=== PATIENT | female | born 1980 | race Caucasian/White ===

== ENCOUNTER 2022-01-25 20:48 | Inpatient (IN) | payer OTHER, SELFPAY ==
[2022-01-25 21:50] VITALS: BP 116/59; PULSE 95; RESP 16; TEMP 36.2; O2SAT 97; BMI 27.3
--- NOTE | 2022-01-25 23:40 | PC.ADMIT ---
Pt is a 41y/o female admitted on [facility] from [facility] for inpatient level of care due to disorganized presentation and having difficulty answering questions. Pt is alert and oriented X3, VSS. Covid negative, Tox screen positive for Marijuana; history of cocain and ETOH use. Pt presents as disheveled, irritable and disorganized thought process. Pt is high risk of unintentional harm to self and also being taken advantage of in the community due to poor decision making and poor judgment. Pt has poor ADLs. Pt denies SI/HI/ or AH/VH. Endorsed low depression. Pt states that she is tired and ready to sleep. Speech is pressured with normal rate and rhythm. Pt has difficulty answering questions and also completing admission assessment. Pt agrees that staff notifies her sister in the event of a restraint. admission orders obtained, safety tool and treatment plan completed.
[2022-01-26 07:40] LABS: Cholesterol 232 mg/dL; HDL Cholesterol 46 mg/dL; LDL Cholesterol Calculated 143 mg/dl; Triglycerides 217 mg/dL
[2022-01-26 07:47] LABS: Estimated Average Glucose 108 mg/dL; Hemoglobin A1c % 5.4 %
[2022-01-26 08:00] LABS: TSH reflex Free T4 2.83 uIU/mL (0.32-4.0)
[2022-01-26] MEDS: LORazepam 1 MG TABLET PO (09:29)
--- NOTE | 2022-01-26 11:28 | HO.PSYADMNOT ---
[facility] Date of Service: 01/26/22 Chief Complaint: Disorganized, maniac behavior Sources of Information: patient interviewed, chart reviewed and crisis/core team assessment reviewed Additional Sources of Information: sister Christopher [facility] Subjective Notes: Junior Warning and Conditional Voluntary Narrative: Patient is a 41-year-old female with history of MS, trauma, cocaine dependence who presents for disorganized behavior 1/2 weeks after completing Section 35. Patient said that she is not sure why she is here other than her sister said she was running off the hook. Patient says she does not think that really was the case but agrees she probably needs medication adjustments. She said that she has the same person she always was. She does acknowledge she was incontinent at home however says this was just because of her MS and her inability to get up quickly enough to get to the toilet. She denies any SI, HI or AVH; she denies any paranoid thinking or worries. She reports that she will went to a Section 35 at [facility] Where theystarted her on medications which she says felt awful but denies ever feeling confused. However upon inquiry patient confirms that most of the medications she was on at Section 35 were ones that she was on prior to her being there Which she lists, knowing their names, doses and with therefore and include oxybutynin, ibuprofen,topimax (for chronic headache, not migraine), trazodone, omeprazole and hydroxyzine. She says that her outpatient psychiatrist in the past had put her on Invega Sustenna which she last got during Section 35 however she is not sure why she was ever put on that. Patient says she very much wants to return to live with her sister and hope she can go home soon. She says she has court coming up where she is giving up her children for adoption, her 17, 15 and 10-year-old feeling unable to care for them. She wants to spend time with them as this is her last week to do so. Patient however says it is an open adoption and that the adoptive parents said she she can come visit any time. Patient wants to be on previous listed medication regimen. She does not know why she was on Risperdal and does not feel a need for it at this time. Denies TBI. Denies PTSD symptoms though endorses history of trauma. Patient had signed a release for her sister when sign writer letterer or painter called Christopher who says she cares very much for her sister and wants her to live with her but needs her to be safe. She says that she was homeless for close to a year, addicted to crack cocaine and that in order to live with her, Christopher wanted her to be detoxed so Petitioned for a Section 35. Patient patient has been home for the past 1.5 weeks during which time Christopher says she has struggles dressing herself, cleaning herself and toileting herself. Christopher does not know why and wonders if it is because of the medications or if there is some other problem. Elton is adamant that her sister has not used any substances during this past week. Past Psychiatric History: substance abuse section 35 Medical Evaluation Reviewed: Hospitalist Eric Xiaoing [facility] Medical History (Updated 01/27/22 @ 00:39 by Lavell Diaz MD) Adjustment disorder with mixed disturbance of emotions and conduct GERD (gastroesophageal reflux disease) Family History: father: alcohol abuse sister: substance abuse Social History: did not finish HS has 3 kids, plans to give them up for adoption Substance History: crack cocaine; sober since section 35 Trauma History: childhood through adult Diagnostics Vital Signs (24Hr): Vital Signs - 24 hr 01/25/22 21:50 Temperature 97.2 F Pulse Rate 95 Respiratory Rate 16 Blood Pressure 116/59 L Pulse Oximetry 97 BMI result Body Mass Index 27.3 Labs Labs: Laboratory Results - last 48 hr 01/26/22 01/26/22 07:11 07:11 Estimat Average Glucose 108 Hemoglobin A1c % 5.4 Triglycerides 217 Cholesterol 232 LDL Cholesterol, Calc 143 HDL Cholesterol 46 TSH 2.83 Meds/Allergies Meds Home Medications Al Hydroxide/Mg Hydroxide (Magnesium Hydrox/Alum Hydrox 30 Ml Oral.Susp) 30 ml PO Q6H PRN PRN Reason: Heartburn/Nausea Hydroxyzine HCl (Hydroxyzine Hcl 50 Mg Tablet) 50 mg PO BID PRN PRN Reason: anxiety Ibuprofen (Ibuprofen 800 Mg Tablet) 800 mg PO Q8H PRN PRN Reason: Pain, Mild (Pain Scale 1-3) Magnesium Hydroxide (Milk Of Magnesia 30 Ml Oral.Susp) 30 ml PO DAILY PRN PRN Reason: Constipation Melatonin (Melatonin 3 Mg Tablet) 3 mg PO BEDTIME TOVA Last Admin: 01/26/22 22:11 Dose: 3 mg Documented by: Nicotine (Nicotine 21 Mg Patch.Td24) 21 mg TRANSDERMA DAILY PRN PRN Reason: nicotine cessastion Nicotine Polacrilex (Nicotine Polacrilex 2 Mg Gum) 4 mg BUCCAL Q2H PRN PRN Reason: Nicotine Cravings Omeprazole (Omeprazole 40 Mg Capsule.Dr) 40 mg PO DAILY@0630 [facility] Oxybutynin Chloride (Oxybutynin Chloride Er 5 Mg Tab.Er.24) 5 mg PO DAILY [facility] Topiramate (Topiramate 25 Mg Tablet) 50 mg PO BID [facility] Last Admin: 01/26/22 22:11 Dose: 50 mg Documented by: Trazodone HCl (Trazodone Hcl 50 Mg Tablet) 50 mg PO BEDTIME [facility] Last Admin: 01/26/22 22:11 Dose: 50 mg Documented by: Allergies Allergies Allergy/AdvReac Type Severity Reaction Status Date / Time clindamycin Allergy Unknown Unknown Verified 01/25/22 21:48 codeine Allergy Unknown Unknown Verified 01/25/22 21:48 Penicillins Allergy Unknown Unknown Verified 01/25/22 21:48 Mental Status Exam Mental Status Exam Narrative: Pt is alert and oriented; behavior is cooperative, calm; patient is not in distress; dressed in casual attire, unkempt; mood is described as ok and affect constricted; eye contact appropriate; Speech is normal rate, volume and prosody and not pressured; no psychomotor agitation/retardation present; thought process is organized and goal directed; Thought content is on tx and discharge home; otherwise pertinent to relevant topics and without any delusional content, paranoid ideations or grandiosity; denies any SI/HI. There is no evidence of perceptual disturbance. Patients insight and judgment appear intact. Assessment & Plan Assessment & Plan (1) Adjustment disorder with mixed disturbance of emotions and conduct: Status: Acute Code(s): F43.25 - Adjustment disorder with mixed disturbance of emotions and conduct Plan Patient is a 41-year-old female with history of MS, trauma, cocaine dependence who presents for disorganized behavior 1/2 weeks after completing Section 35. Patient said that she is not sure why she is here other than her sister said she was running off the hook. ? -pt presents as organized in speech and behavior and whatever was off baseline seems to have resolved. Pt's sister will come for family meeting to discuss plan: continue home meds hold risperdal/invega for now; will try to assess need for mood stabilizer as collateral becomes more available CBC, lytes, BUN/creatinine, liver enzymes all within normal limits; UA negative; utox negative Patient educated on: diagnosis, medication risk/benefits and substance abuse Informed Consent: understands Reason for continued inpatient stay Substantial Risk for: med/psych decompensation
[2022-01-26] MEDS: Acetaminophen 325 MG TABLET 650 MG PO (13:26)
--- NOTE | 2022-01-26 14:34 | P.CONIM_ITS ---
History of Present Illness Data of Consult Service Date: 01/26/22 Primary Care Provider: Unknown Physician HPI Reason for consult: Medical evaluation a 41 years old lady with PMH of reported MS not on medications who presents to the hospital for psychiatric admission for disorganization and manic behavior. The patient reported that she did not have any recent attacks of a MS but was unclear about the actual diagnosis reporting she has neuropathy in her lower extremities, thighs and buttocks for a while now. Denies any chest pain, shortness of breath, change in bowel habit or urinary symptoms. Hospitalist team asked to evaluate the patient for any medical problems. Review of Systems Review of Systems: No fever, chills or weakness No chest pain, palpitation No shortness of breath or coughing No abdominal pain, nausea or vomiting No urinary symptoms No any rash or wounds [facility] Medical History (Updated 01/26/22 @ 14:58 by Ramin Bryan MD) GERD (gastroesophageal reflux disease) Social History Household Members: Family Household Members Other:: Sister, Sister's and two children Housing: House Do you presently have visiting nurse or other home services: No Patient Tobacco Use Status: Never used Tobacco Use of substances other than those prescribed or required for medical reasons: Yes Substance Use Type: Crack/Cocaine and Marijuana Substance Use Frequency: Daily Last Used Substance: Days (ago) Currently Displaying Signs/Symptoms of Drug Intoxication Withdrawal: No Any prior treatment program specific to substance use: No Have you been hit, kicked, punched, or otherwise hurt by someone within the past year? If so, by whom?: No Do you feel safe in your current relationship?: No Current Relationship Is there a partner from a previous relationship who is making you feel unsafe now?: No Are you made to feel afraid or neglected: No Spiritual Healthcare Practices: N/A Synagogue Healthcare Practices: N/A Cultural Healthcare Practices: N/A Advance Directives: No Advance Directives Information Provided: No Advance Directives on File: No Do you have thoughts of harming others: None Do you have a plan to hurt others: No Plan Recently lost weight without trying: No Nutrition Risks: No Nutritional Risk Patient : No : No Poor oral hygiene: No Meds Allergies Allergy/AdvReac Type Severity Reaction Status Date / Time clindamycin Allergy Unknown Unknown Verified 01/25/22 21:48 codeine Allergy Unknown Unknown Verified 01/25/22 21:48 Penicillins Allergy Unknown Unknown Verified 01/25/22 21:48 Active Medications: Current Medications Acetaminophen (Acetaminophen 325 Mg Tablet) 650 mg PO Q6H PRN PRN Reason: Headache/Pain Mild Scale (1-3) Last Admin: 01/26/22 13:26 Dose: 650 mg Documented by: Al Hydroxide/Mg Hydroxide (Magnesium Hydrox/Alum Hydrox 30 Ml Oral.Susp) 30 ml PO Q6H PRN PRN Reason: Heartburn/Nausea Diphenhydramine HCl (Diphenhydramine Hcl 25 Mg Tablet) 50 mg PO Q4H PRN PRN Reason: agitation Haloperidol (Haloperidol 5 Mg Tablet) 5 mg PO Q4H PRN PRN Reason: agitation Hydroxyzine HCl (Hydroxyzine Hcl 25 Mg Tablet) 25 mg PO QID PRN PRN Reason: Anxiety Lorazepam (Lorazepam 1 Mg Tablet) 2 mg PO Q4H PRN PRN Reason: agitation Magnesium Hydroxide (Milk Of Magnesia 30 Ml Oral.Susp) 30 ml PO DAILY PRN PRN Reason: Constipation Melatonin (Melatonin 3 Mg Tablet) 3 mg PO BEDTIME TOVA Last Admin: 01/26/22 04:00 Dose: Not Given Documented by: Nicotine (Nicotine 21 Mg Patch.Td24) 21 mg TRANSDERMA DAILY PRN PRN Reason: nicotine cessastion Nicotine Polacrilex (Nicotine Polacrilex 2 Mg Gum) 4 mg BUCCAL Q2H PRN PRN Reason: Nicotine Cravings Trazodone HCl (Trazodone Hcl 50 Mg Tablet) 50 mg PO TID PRN PRN Reason: Anxiety Home Medications Medication Instructions Recorded Confirmed Last Taken Type omeprazole 40 mg capsule,delayed 40 mg PO DAILY 01/26/22 01/26/22 Unknown History release oxybutynin chloride 5 mg 5 mg PO DAILY 01/26/22 01/26/22 Unknown History tablet,extended release 24 hr trazodone 50 mg PO BEDTIME PRN 01/26/22 01/26/22 Unknown History Physical Exam 2 Vital Signs and Narrative: Vital Signs: Last Vital Signs Temp 97.2 F 01/25/22 21:50 Pulse 95 01/25/22 21:50 Resp 16 01/25/22 21:50 BP 116/59 L 01/25/22 21:50 Pulse Ox 97 01/25/22 21:50 BMI result Body Mass Index 27.3 Const: Other: Constitutional : Alert, oriented, not in distress Neck : Normal inspection, Supple Cardiovascular : RRR, S1 S2, no lower extremity edema Respiratory : Good bilateral air entry, no crackles, wheezes or rhonchi Gastrointestinal: soft, lax, Normal bowel sounds, Non tender Skin : Warm, Dry Neurological : Alert & oriented x3, No focal deficit Results Labs Labs: Laboratory Results - last 24 hr 01/26/22 01/26/22 07:11 07:11 Estimat Average Glucose 108 Hemoglobin A1c % 5.4 Triglycerides 217 Cholesterol 232 LDL Cholesterol, Calc 143 HDL Cholesterol 46 TSH 2.83 Assessment and Plan (1) Evaluation by medical service required: Status: Acute Plan 41 years old lady with PMH of reported MS not on medications who presents to the hospital for psychiatric admission for disorganization and manic behavior. Reported history MS no new symptoms, not on any medications GERD Continue omeprazole Thank you for the consult, please contact the hospitalist team for any further questions.
[2022-01-26] MEDS: hydrOXYzine HCL 25 MG TABLET PO (15:55)
[2022-01-26 18:00] VITALS: BP 112/78; PULSE 88; TEMP 35.6
[2022-01-26] MEDS: Topiramate 25 MG TABLET 50 MG PO (22:11)
[2022-01-26] MEDS: traZODone HCL 50 MG TABLET PO (22:11)
[2022-01-26] MEDS: Melatonin 3 MG TABLET PO (22:11)
[2022-01-27 06:00] VITALS: BP 119/62; PULSE 77; RESP 18; TEMP 36.3; O2SAT 98
[2022-01-27] MEDS: Omeprazole 40 MG CAPSULE.DR PO (06:51)
[2022-01-27] MEDS: Topiramate 25 MG TABLET 50 MG PO ×2 (08:42→20:20)
[2022-01-27] MEDS: Ibuprofen 800 MG TABLET PO (09:09)
[2022-01-27] MEDS: hydrOXYzine HCL 50 MG TABLET PO ×2 (12:18→16:50)
[2022-01-27] MEDS: Amphetamine Mixed Salts 10 MG TABLET 5 MG PO (14:52)
[2022-01-27] MEDS: Nicotine Polacrilex 2 MG GUM 4 MG BUCCAL (16:05)
[2022-01-27] MEDS: Nicotine 21 MG PATCH.TD24 TRANSDERMA (16:25)
--- NOTE | 2022-01-27 17:53 | HO.PSYCHPN ---
Subjective Subjective Date of Service: 01/27/22 Reason For Visit: Disorganized, maniac behavior Interim History: Patient perseverative on going home today. Patient's sister Christopher visited at the unit and discussed case with health underwriter and social work supervisor. Christopher said that patient is overall different than she was a year ago prior to her disappearing into homelessness and drug addiction. She said she has more child-like. However Christopher does agree that patient seems to be logical and organized and agrees that patient can return to live with her. Christopher asks for help with services. [facility] would not stop asking if she was going home today however once health underwriter discussed her situation she agreed to remain on the unit to demonstrate that she is organized enough to bathe herself, feed herself and remained in good behavioral control. She said she felt good about this plan and was eager to demonstrate her ability. Patient continues to deny any SI or HI or AVH. She is happy with her medication regimen and continues to feel that the Invega Sustenna/Risperdal is not needed. Special Procedure Tech called and left message for patient's last prescriber about this medication but has not yet heard back. Mental Status Exam Mental Status Exam Narrative: Pt is alert and oriented; behavior is cooperative, calm; patient is not in distress; dressed in casual attire, unkempt; mood is described as ok and affect constricted, sometimes tearful; eye contact appropriate; Speech is normal rate, volume and prosody and not pressured; no psychomotor agitation/retardation present; thought process is goal directed but very fixed on asking about discharge; Thought content is on discharge; otherwise pertinent to relevant topics and without any delusional content, paranoid ideations or grandiosity; denies any SI/HI. There is no evidence of perceptual disturbance. ?Patients insight and judgment appear intact. Diagnostics Vital Signs (24Hr): Vital Signs - 24 hr 01/26/22 18:00 01/27/22 06:00 Temperature 96.1 F L 97.4 F Pulse Rate 88 77 Respiratory Rate 18 Blood Pressure 112/78 119/62 Pulse Oximetry 98 BMI result Body Mass Index 27.3 Labs Labs: Laboratory Results - last 48 hr 01/26/22 01/26/22 07:11 07:11 Estimat Average Glucose 108 Hemoglobin A1c % 5.4 Triglycerides 217 Cholesterol 232 LDL Cholesterol, Calc 143 HDL Cholesterol 46 TSH 2.83 Medications Medications Current Medications Al Hydroxide/Mg Hydroxide (Magnesium Hydrox/Alum Hydrox 30 Ml Oral.Susp) 30 ml PO Q6H PRN PRN Reason: Heartburn/Nausea Amphetamine/Dextroamphetamine (Amphetamine Mixed Salts 10 Mg Tablet) 10 mg PO DAILY [facility] Hydroxyzine HCl (Hydroxyzine Hcl 50 Mg Tablet) 50 mg PO BID PRN PRN Reason: anxiety Last Admin: 01/27/22 16:50 Dose: 50 mg Documented by: Ibuprofen (Ibuprofen 800 Mg Tablet) 800 mg PO Q8H PRN PRN Reason: Pain, Mild (Pain Scale 1-3) Last Admin: 01/27/22 09:09 Dose: 800 mg Documented by: Magnesium Hydroxide (Milk Of Magnesia 30 Ml Oral.Susp) 30 ml PO DAILY PRN PRN Reason: Constipation Melatonin (Melatonin 3 Mg Tablet) 3 mg PO BEDTIME [facility] Last Admin: 01/26/22 22:11 Dose: 3 mg Documented by: Nicotine (Nicotine 21 Mg Patch.Td24) 21 mg TRANSDERMA DAILY PRN PRN Reason: nicotine cessastion Last Admin: 01/27/22 16:25 Dose: 21 mg Documented by: Nicotine Polacrilex (Nicotine Polacrilex 2 Mg Gum) 4 mg BUCCAL Q2H PRN PRN Reason: Nicotine Cravings Last Admin: 01/27/22 16:05 Dose: 4 mg Documented by: Omeprazole (Omeprazole 40 Mg Capsule.Dr) 40 mg PO DAILY@0630 [facility] Last Admin: 01/27/22 06:51 Dose: 40 mg Documented by: Oxybutynin Chloride (Oxybutynin Chloride Er 5 Mg Tab.Er.24) 5 mg PO DAILY [facility] Last Admin: 01/27/22 08:42 Dose: 5 mg Documented by: Topiramate (Topiramate 25 Mg Tablet) 50 mg PO BID [facility] Last Admin: 01/27/22 08:42 Dose: 50 mg Documented by: Trazodone HCl (Trazodone Hcl 50 Mg Tablet) 50 mg PO BEDTIME [facility] Last Admin: 01/26/22 22:11 Dose: 50 mg Documented by: Allergies Allergies Allergy/AdvReac Type Severity Reaction Status Date / Time clindamycin Allergy Unknown Unknown Verified 01/25/22 21:48 codeine Allergy Unknown Unknown Verified 01/25/22 21:48 Penicillins Allergy Unknown Unknown Verified 03/12/22 21:48 Assessment & Plan Assessment & Plan (1) Adjustment disorder with mixed disturbance of emotions and conduct: Status: Acute Code(s): F43.25 - Adjustment disorder with mixed disturbance of emotions and conduct Plan Patient is a 41-year-old female with history of MS, trauma, cocaine dependence who presents for disorganized behavior 1/2 weeks after completing Section 35. Patient said that she is not sure why she is here other than her sister said she was running off the hook. ? -pt presents as organized in speech and behavior and whatever was off baseline seems to have resolved. Pt's sister will come for family meeting to discuss -patient seems overall organized in speech and behavior unless she is getting stressed and worried during which time she regresses and has a child-like approach to deal with her problems, asking the same question over and over, tearful at times. However she excepted the treatment plan and was eager to demonstrate that she can remain organized and attend to ADLs. After meeting with her sister and accepting treatment plan, patient became much more relaxed, showered herself on the unit and has overall been appropriate with peers and staff. Christopher feels that her baseline has changed from what it was a year ago. Special Procedure Tech of course does not know patient's prior baseline and there is no clear information as to why; reportedly head CT was done at [facility] which reportedly was unremarkable for head trauma but did show some signs of MS. Patient was also living in the [facility] [place], frequently having a butane stove in her tent, embroiled in severe substance abuse, the combination possibly affecting her mentation. However, regardless of her past baseline, patient is currently demonstrating adequate judgment and insight. plan: continue home meds hold risperdal/invega for now; will try to assess need for mood stabilizer as collateral becomes more available CBC, lytes, BUN/creatinine, liver enzymes all within normal limits; UA negative; utox negative I spent minutes with the patient and/or on the patient floor today, greater than?50% of which was spent counseling/coordinating care. Patient educated on: therapeutic strategies Informed Consent: understands Reason for contiued inpatient stay Substantial Risk for: stable for discharge
[2022-01-27 18:44] VITALS: BP 113/69; PULSE 121; RESP 17; TEMP 36.8; O2SAT 98
[2022-01-27] MEDS: Melatonin 3 MG TABLET PO (20:20)
[2022-01-27] MEDS: traZODone HCL 50 MG TABLET PO (20:20)
[2022-01-27] MEDS: diphenhydrAMINE HCL 25 MG TABLET 50 MG PO (20:20)
[2022-01-27] MEDS: Benztropine Mesylate 1 MG TABLET PO (20:21)
[2022-01-28 06:00] VITALS: BP 118/64; PULSE 102; RESP 18; TEMP 36.4; O2SAT 97
[2022-01-28] MEDS: Omeprazole 40 MG CAPSULE.DR PO (06:10)
[2022-01-28] MEDS: hydrOXYzine HCL 50 MG TABLET PO ×4 (07:48→19:58)
[2022-01-28] MEDS: Benztropine Mesylate 1 MG TABLET PO ×2 (08:17→19:59)
[2022-01-28] MEDS: Topiramate 25 MG TABLET 50 MG PO ×2 (08:17→19:58)
[2022-01-28] MEDS: Amphetamine Mixed Salts 10 MG TABLET PO (08:19)
[2022-01-28] MEDS: Ibuprofen 800 MG TABLET PO (10:54)
--- NOTE | 2022-01-28 16:47 | HO.PSYCHPN ---
Subjective Subjective Date of Service: 01/28/22 Reason For Visit: Disorganized, maniac behavior Interim History: Patient warm and friendly on approach. 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 She is dressed in clean clothes and appears adequately groomed. has no complaints and no requests and has been witnessed by staff to be interacting with peers appropriately. Patient asked if the plan is still that she will be discharged to which typewriter assembly and parts inspector agreed. Denies any SI or HI or AVH. Mental Status Exam Mental Status Exam Narrative: Pt is alert and oriented; behavior is cooperative, calm; patient is not in distress; dressed in casual attire, adequately groomed with good hygiene; mood is described as good and affect congruent, calm, brighter; eye contact is appropriate; Speech is normal rate, volume and prosody and not pressured; no psychomotor agitation/retardation present; thought process is goal directed and WNL, pertinent to relevant topics and without any delusional content, paranoid ideations or grandiosity; denies any SI/HI. There is no evidence of perceptual disturbance. ?Patients insight and judgment appear intact. Diagnostics Vital Signs (24Hr): Vital Signs - 24 hr 01/27/22 18:44 01/28/22 06:00 Temperature 98.3 F 97.6 F Pulse Rate 121 H 102 H Respiratory Rate 17 18 Blood Pressure 113/69 118/64 Pulse Oximetry 98 97 BMI result Body Mass Index 27.3 Medications Medications Current Medications Al Hydroxide/Mg Hydroxide (Magnesium Hydrox/Alum Hydrox 30 Ml Oral.Susp) 30 ml PO Q6H PRN PRN Reason: Heartburn/Nausea Amphetamine/Dextroamphetamine (Amphetamine Mixed Salts 10 Mg Tablet) 10 mg PO DAILY [facility] Last Admin: 01/28/22 08:19 Dose: 10 mg Documented by: Benztropine Mesylate (Benztropine Mesylate 1 Mg Tablet) 1 mg PO BID [facility] Last Admin: 01/28/22 08:17 Dose: 1 mg Documented by: Diphenhydramine HCl (Diphenhydramine Hcl 25 Mg Tablet) 50 mg PO BEDTIME PRN PRN Reason: Insomnia Last Admin: 01/27/22 20:20 Dose: 50 mg Documented by: Hydroxyzine HCl (Hydroxyzine Hcl 50 Mg Tablet) 50 mg PO QID PRN PRN Reason: anxiety Last Admin: 01/28/22 16:10 Dose: 50 mg Documented by: Ibuprofen (Ibuprofen 800 Mg Tablet) 800 mg PO Q8H PRN PRN Reason: Pain, Mild (Pain Scale 1-3) Last Admin: 01/28/22 10:54 Dose: 800 mg Documented by: Magnesium Hydroxide (Milk Of Magnesia 30 Ml Oral.Susp) 30 ml PO DAILY PRN PRN Reason: Constipation Melatonin (Melatonin 3 Mg Tablet) 3 mg PO BEDTIME [facility] Last Admin: 01/27/22 20:20 Dose: 3 mg Documented by: Nicotine (Nicotine 21 Mg Patch.Td24) 21 mg TRANSDERMA DAILY PRN PRN Reason: nicotine cessastion Last Admin: 01/27/22 16:25 Dose: 21 mg Documented by: Nicotine Polacrilex (Nicotine Polacrilex 2 Mg Gum) 4 mg BUCCAL Q2H PRN PRN Reason: Nicotine Cravings Last Admin: 01/27/22 16:05 Dose: 4 mg Documented by: Omeprazole (Omeprazole 40 Mg Capsule.Dr) 40 mg PO DAILY@0630 [facility] Last Admin: 01/28/22 06:10 Dose: 40 mg Documented by: Oxybutynin Chloride (Oxybutynin Chloride Er 5 Mg Tab.Er.24) 5 mg PO DAILY [facility] Last Admin: 01/28/22 08:18 Dose: 5 mg Documented by: Topiramate (Topiramate 25 Mg Tablet) 50 mg PO BID [facility] Last Admin: 01/28/22 08:17 Dose: 50 mg Documented by: Trazodone HCl (Trazodone Hcl 50 Mg Tablet) 50 mg PO BEDTIME [facility] Last Admin: 01/27/22 20:20 Dose: 50 mg Documented by: Allergies Allergies Allergy/AdvReac Type Severity Reaction Status Date / Time clindamycin Allergy Unknown Unknown Verified 01/25/22 21:48 codeine Allergy Unknown Unknown Verified 01/25/22 21:48 Penicillins Allergy Unknown Unknown Verified 01/25/22 21:48 Assessment & Plan Assessment & Plan (1) Adjustment disorder with mixed disturbance of emotions and conduct: Status: Acute Code(s): F43.25 - Adjustment disorder with mixed disturbance of emotions and conduct Plan Patient is a 41-year-old female with history of MS, trauma, cocaine dependence who presents for disorganized behavior 1/2 weeks after completing Section 35. Patient said that she is not sure why she is here other than her sister said she was running off the hook. ? -pt presents as organized in speech and behavior and whatever was off baseline seems to have resolved. Pt's sister will come for family meeting to discuss -patient seems overall organized in speech and behavior unless she is getting stressed and worried during which time she regresses and has a child-like approach to deal with her problems, asking the same question over and over, tearful at times. However she excepted the treatment plan and was eager to demonstrate that she can remain organized and attend to ADLs. After meeting with her sister and accepting treatment plan, patient became much more relaxed, showered herself on the unit and has overall been appropriate with peers and staff. Christopher feels that her baseline has changed from what it was a year ago. Gift Consultant of course does not know patient's prior baseline and there is no clear information as to why; reportedly head CT was done at [facility] which reportedly was unremarkable for head trauma but did show some signs of MS. Patient was also living in the [facility], frequently having a butane stove in her tent, embroiled in severe substance abuse, the combination possibly affecting her mentation. However, regardless of her past baseline, patient is currently demonstrating adequate judgment and insight. 01/28 remains stable, organized and speech behavior, appropriate with peers and staff, adequately attending to all ADLs plan: continue home meds hold risperdal/invega for now; will try to assess need for mood stabilizer as collateral becomes more available CBC, lytes, BUN/creatinine, liver enzymes all within normal limits; UA negative; utox negative I spent minutes with the patient and/or on the patient floor today, greater than?50% of which was spent counseling/coordinating care. Patient educated on: therapeutic strategies Informed Consent: understands Reason for contiued inpatient stay Substantial Risk for: stable for discharge
[2022-01-28 18:00] VITALS: BP 112/77; PULSE 74; TEMP 36.1; O2SAT 98
[2022-01-28] MEDS: Melatonin 3 MG TABLET PO (19:58)
[2022-01-28] MEDS: traZODone HCL 50 MG TABLET PO (19:58)
[2022-01-29 06:00] VITALS: BP 124/65; PULSE 90; RESP 18; TEMP 36.4; O2SAT 99
[2022-01-29] MEDS: Omeprazole 40 MG CAPSULE.DR PO (06:52)
[2022-01-29] MEDS: Ibuprofen 800 MG TABLET PO ×2 (07:18→19:56)
[2022-01-29] MEDS: Topiramate 25 MG TABLET 50 MG PO ×2 (08:23→19:55)
[2022-01-29] MEDS: Benztropine Mesylate 1 MG TABLET PO ×2 (08:23→19:55)
[2022-01-29] MEDS: Amphetamine Mixed Salts 10 MG TABLET PO (08:23)
[2022-01-29] MEDS: hydrOXYzine HCL 50 MG TABLET PO ×4 (08:44→19:55)
--- NOTE | 2022-01-29 09:44 | HO.PSYCHPN ---
Subjective Subjective Date of Service: 01/29/22 Reason For Visit: Disorganized, maniac behavior Interim History: Patient reports that she is doing well. She is showered and dressed in clean clothes. She says she is looking forward to discharge on and is excited to return and live with her sister. She does not have any cravings and is optimistic about staying sober. Land Leasing Information Clerk discussed maintenance medication to help with cravings for alcohol but patient says she does not want to add any more medications at this time. Again discussed history of being on Risperdal/Invega but patient again says she does not feel a need for it and does not know why. Land Leasing Information Clerk has not heard back from the prescribing physician. Patient remains in good behavioral and impulse control, appropriate with peers and staff, friendly and coping well with being on the unit. Mental Status Exam Mental Status Exam Narrative: Pt is alert and oriented; behavior is cooperative, calm; patient is not in distress; dressed in casual attire, adequately groomed with good hygiene; mood is described as good and affect congruent, calm, brighter; eye contact is appropriate; Speech is normal rate, volume and prosody and not pressured; no psychomotor agitation/retardation present; thought process is goal directed and WNL, pertinent to relevant topics and without any delusional content, paranoid ideations or grandiosity; denies any SI/HI. There is no evidence of perceptual disturbance. ?Patients insight and judgment appear intact. Diagnostics Vital Signs (24Hr): Vital Signs - 24 hr 01/28/22 18:00 01/29/22 06:00 Temperature 97 F 97.6 F Pulse Rate 74 90 Respiratory Rate 18 Blood Pressure 112/77 124/65 Pulse Oximetry 98 99 BMI result Body Mass Index 27.3 Medications Medications Current Medications Al Hydroxide/Mg Hydroxide (Magnesium Hydrox/Alum Hydrox 30 Ml Oral.Susp) 30 ml PO Q6H PRN PRN Reason: Heartburn/Nausea Amphetamine/Dextroamphetamine (Amphetamine Mixed Salts 10 Mg Tablet) 10 mg PO DAILY [facility] Last Admin: 01/29/22 08:23 Dose: 10 mg Documented by: Benztropine Mesylate (Benztropine Mesylate 1 Mg Tablet) 1 mg PO BID [facility] Last Admin: 01/29/22 08:23 Dose: 1 mg Documented by: Diphenhydramine HCl (Diphenhydramine Hcl 25 Mg Tablet) 50 mg PO BEDTIME PRN PRN Reason: Insomnia Last Admin: 01/27/22 20:20 Dose: 50 mg Documented by: Hydroxyzine HCl (Hydroxyzine Hcl 50 Mg Tablet) 50 mg PO QID PRN PRN Reason: anxiety Last Admin: 01/29/22 08:44 Dose: 50 mg Documented by: Ibuprofen (Ibuprofen 800 Mg Tablet) 800 mg PO Q8H PRN PRN Reason: Pain, Mild (Pain Scale 1-3) Last Admin: 01/29/22 07:18 Dose: 800 mg Documented by: Magnesium Hydroxide (Milk Of Magnesia 30 Ml Oral.Susp) 30 ml PO DAILY PRN PRN Reason: Constipation Melatonin (Melatonin 3 Mg Tablet) 3 mg PO BEDTIME [facility] Last Admin: 01/28/22 19:58 Dose: 3 mg Documented by: Nicotine (Nicotine 21 Mg Patch.Td24) 21 mg TRANSDERMA DAILY PRN PRN Reason: nicotine cessastion Last Admin: 01/27/22 16:25 Dose: 21 mg Documented by: Nicotine Polacrilex (Nicotine Polacrilex 2 Mg Gum) 4 mg BUCCAL Q2H PRN PRN Reason: Nicotine Cravings Last Admin: 01/27/22 16:05 Dose: 4 mg Documented by: Omeprazole (Omeprazole 40 Mg Capsule.Dr) 40 mg PO DAILY@0630 [facility] Last Admin: 01/29/22 06:52 Dose: 40 mg Documented by: Oxybutynin Chloride (Oxybutynin Chloride Er 5 Mg Tab.Er.24) 5 mg PO DAILY [facility] Last Admin: 01/29/22 08:23 Dose: 5 mg Documented by: Topiramate (Topiramate 25 Mg Tablet) 50 mg PO BID [facility] Last Admin: 01/29/22 08:23 Dose: 50 mg Documented by: Trazodone HCl (Trazodone Hcl 50 Mg Tablet) 50 mg PO BEDTIME [facility] Last Admin: 01/28/22 19:58 Dose: 50 mg Documented by: Allergies Allergies Allergy/AdvReac Type Severity Reaction Status Date / Time clindamycin Allergy Unknown Unknown Verified 01/25/22 21:48 codeine Allergy Unknown Unknown Verified 01/25/22 21:48 Penicillins Allergy Unknown Unknown Verified 01/25/22 21:48 Assessment & Plan Assessment & Plan (1) Adjustment disorder with mixed disturbance of emotions and conduct: Status: Acute Code(s): F43.25 - Adjustment disorder with mixed disturbance of emotions and conduct Plan Patient is a 41-year-old female with history of MS, trauma, cocaine dependence who presents for disorganized behavior 1/2 weeks after completing Section 35. Patient said that she is not sure why she is here other than her sister said she was running off the hook. ? -pt presents as organized in speech and behavior and whatever was off baseline seems to have resolved. Pt's sister will come for family meeting to discuss -patient seems overall organized in speech and behavior unless she is getting stressed and worried during which time she regresses and has a child-like approach to deal with her problems, asking the same question over and over, tearful at times. However she excepted the treatment plan and was eager to demonstrate that she can remain organized and attend to ADLs. After meeting with her sister and accepting treatment plan, patient became much more relaxed, showered herself on the unit and has overall been appropriate with peers and staff. Christopher feels that her baseline has changed from what it was a year ago. Land Leasing Information Clerk of course does not know patient's prior baseline and there is no clear information as to why; reportedly head CT was done at [facility] which reportedly was unremarkable for head trauma but did show some signs of MS. Patient was also living in the [facility], frequently having a butane stove in her tent, embroiled in severe substance abuse, the combination possibly affecting her mentation. However, regardless of her past baseline, patient is currently demonstrating adequate judgment and insight. 315 remains stable, organized and speech behavior, appropriate with peers and staff, adequately attending to all ADLs 316 patient continues to do well, good mood, organized and speech behavior and getting along well with peers and staff; fully attending to all ADLs plan: continue home meds hold risperdal/invega for now; will try to assess need for mood stabilizer as collateral becomes more available CBC, lytes, BUN/creatinine, liver enzymes all within normal limits; UA negative; utox negative I spent minutes with the patient and/or on the patient floor today, greater than?50% of which was spent counseling/coordinating care. Patient educated on: medication risk/benefits and substance abuse Informed Consent: understands Reason for contiued inpatient stay Substantial Risk for: stable for discharge
[2022-01-29 18:00] VITALS: BP 116/69; PULSE 113; TEMP 36.3; O2SAT 98
[2022-01-29] MEDS: traZODone HCL 50 MG TABLET PO (19:54)
[2022-01-29] MEDS: Melatonin 3 MG TABLET PO (19:55)
[2022-01-30] MEDS: Omeprazole 40 MG CAPSULE.DR PO (06:38)
[2022-01-30 08:00] VITALS: BP 114/81; PULSE 103; TEMP 37.1
[2022-01-30] MEDS: Topiramate 25 MG TABLET 50 MG PO (08:54)
[2022-01-30] MEDS: Amphetamine Mixed Salts 10 MG TABLET PO (08:55)
[2022-01-30] MEDS: Benztropine Mesylate 1 MG TABLET PO (08:56)
[2022-01-30] MEDS: hydrOXYzine HCL 50 MG TABLET PO ×2 (09:18→12:22)
--- NOTE | 2022-01-30 11:46 | P.DS_ITS ---
DS: Providers Provider Date of Service: 01/30/22 Date of admission: 01/25/22 20:48 Date of discharge: 01/30/22 Primary care physician: Unknown Physician Attending physician on admission: Lavell Diaz Consults: 01/25/22 22:20 Consult to Hospitalist Routine Consulting Provider: Hospitalist Reason For Exam: admission physical Attending physician on discharge: Lavell Diaz DS: Diagnosis Discharge Diagnosis (1) Adjustment disorder with mixed disturbance of emotions and conduct: Status: Acute DS: Medications Discharge Medications Home Medications: Previous Rx's Medication Instructions Recorded benztropine 1 mg tablet 1 mg PO BID 30 Days #60 tab 01/30/22 hydroxyzine HCl 50 mg tablet 50 mg PO BID PRN 30 Days #60 tab 01/30/22 ibuprofen 800 mg tablet 800 mg PO Q8H PRN #0 tab 01/30/22 melatonin 3 mg tablet 3 mg PO BEDTIME PRN 30 Days #30 tab 01/30/22 omeprazole 40 mg capsule,delayed 40 mg PO DAILY 30 Days #30 cap 01/30/22 release oxybutynin chloride 5 mg 5 mg PO DAILY 30 Days #30 tab 01/30/22 tablet,extended release 24 hr topiramate 50 mg tablet 50 mg PO BID 30 Days #60 tab 01/30/22 trazodone 50 mg tablet 50 mg PO BEDTIME PRN 30 Days #30 01/30/22 tab Mental Status Exam Mental Status Exam Narrative: Pt is alert and oriented; behavior is cooperative, calm; patient is not in distress; dressed in casual attire, adequately groomed with good hygiene; mood is described as good and affect congruent, calm, brighter; eye contact is appropriate; Speech is normal rate, volume and prosody and not pressured; no psychomotor agitation/retardation present; thought process is goal directed and WNL, pertinent to relevant topics and without any delusional content, paranoid ideations or grandiosity; denies any SI/HI. There is no evidence of perceptual disturbance. ?Patients insight and judgment appear intact Data Data Completed and Pending Completed studies during hospitalization [Text1]: 01/26/22 01/26/22 07:11 07:11 Estimat Average Glucose 108 Hemoglobin A1c % 5.4 Triglycerides 217 Cholesterol 232 LDL Cholesterol, Calc 143 HDL Cholesterol 46 TSH 2.83 01/26/22 11:14 Urine Other - Suprapubic Urine Culture - Final DS: Summary Hospital Course Hospital Course: Patient is a 41-year-old female with history of MS, trauma, cocaine dependence who presents for disorganized behavior 1/2 weeks after completing Section 35. Patient said that she is not sure why she is here other than her sister said she was running off the hook. ? -pt presents as organized in speech and behavior and whatever was off baseline seems to have resolved. Pt's sister will come for family meeting to discuss -patient seems overall organized in speech and behavior unless she is getting stressed and worried during which time she regresses and has a child-like approach to deal with her problems, asking the same question over and over, tearful at times.? However she excepted the treatment plan and was eager to demonstrate that she can remain organized and attend to ADLs.? After meeting with her sister and accepting treatment plan, patient became much more relaxed, showered herself on the unit and has overall been appropriate with peers and staff.? Christopher feels that her baseline has changed from what it was a year ago.? Associate Professor Of Psychology of course does not know patient's prior baseline and there is no clear information as to why; reportedly head CT was done at [facility] which reportedly was unremarkable for head trauma but did show some signs of MS.? Patient was also living in the [facility], frequently having a butane stove in her tent, embroiled in severe substance abuse, the combination possibly affecting her mentation.? However, regardless of her past baseline, patient is currently demonstrating adequate judgment and insight. Over the subsequent days, Patient continued to report that she is doing well.? She is showered and dressed in clean clothes and remains with organized speech and behavior.? She says she is looking forward to discharge, excited to return and live with her sister.? She does not have any cravings and is optimistic about staying sober.? Associate Professor Of Psychology discussed maintenance medication to help with cravings for alcohol but patient says she does not want to add any more medications at this time.? Patient remains in good behavioral and impulse control, appropriate with peers and staff, friendly and coping well with being on the unit. Patient's sister remained involved and agreed that patient is significantly stabilized, close to her baseline and ready for discharge home where the sisters will live together. Given patient's long history of substance abuse, she remains vulnerable to relapse in decompensation. However she was not in imminent risk for harm to self or others and did not meet criteria for involuntary commitment. Patient's request for discharge honored. Time spent discussing smoking cessation with patient: 3 to 10 minutes Status at Discharge Functional status at discharge: independent ambulation Overall status at discharge: patient is back to baseline Time Spent with Patient Time attestation: Total time spent providing and/or coordinating discharge services: Time spent: Less than 30 minutes Discharge Plan Discharge Patient Disposition: Home, Self-Care Discharge Diagnosis: Adjustment Disorder with disturbance of mood and conduct, in full remission Referrals: Camila Ramirez [Other] - 02/04/22 11:00 am (Initial Diagnostic Evaluation with Therapist Appointment is in person at [facility] Location in [place], [place].) Lu Carter [Other] - 02/25/22 3:00 pm (Initial psychiatric evaluation by a psychiatric provider Appointment in office at [facility] ) Lu Carter [Other] - 03/28/22 11:20 am (Medication management appointment with psychiatric provider in office at [facility]) [facility] [Other] - 01/31/22 (Referral for CSP worker Patient should follow-up on referral for CSP worker following discharge from [facility] [Other] - 1 Week ([facility] application submitted for referral for services. Patient should follow-up with [facility] following discharge from [facility]) [facility] [Other] - 1 Week (Fax- [phone] Service is to start on 01/31/22- [facility] will call to set a time for visit ) Julio Sweet MD [Physician] - 03/17/22 2:00 pm (IN OFFICE) Discharge Medications: New benztropine 1 mg Tablet 1 mg PO BID 30 Days Qty: 60 0RF hydroxyzine HCl 50 mg Tablet 50 mg PO BID PRN (Reason: anxiety) 30 Days Qty: 60 0RF ibuprofen 800 mg Tablet 800 mg PO Q8H PRN (Reason: Pain, Mild (Pain Scale 1-3)) Qty: 0 0RF topiramate 50 mg tablet 50 mg PO BID 30 Days Qty: 60 0RF trazodone 50 mg Tablet 50 mg PO BEDTIME PRN (Reason: insomnia) 30 Days Qty: 30 0RF melatonin 3 mg Tablet 3 mg PO BEDTIME PRN (Reason: sleep) 30 Days Qty: 30 0RF Continued omeprazole 40 mg Capsule,Delayed Release(Dr/Ec) 40 mg PO DAILY 30 Days Qty: 30 0RF oxybutynin chloride 5 mg Tablet Extended Release 24 Hr 5 mg PO DAILY 30 Days Qty: 30 0RF Discontinued trazodone 50 mg PO BEDTIME PRN (Reason: Insomnia) 0RF Discharge Orders: Discharge Order (Routine); Ordered 01/30/22 Ordered By: Lavell Diaz Diet: regular diet Activity on Discharge: As tolerated Stand Alone Forms: Patient Portal Discharge page, Community Support Care Plan Goals: Maintain mood and safe behaviors Take medications as prescribed Continue to pursue sobriety Practice coping skills Continue with outpatient providers and reach out to them as needed Health Concerns: Mood stability and behaviors Sobriety Multiple Sclerosis Plan of Treatment: Follow up with your PCP, Neurology, psychiatric provider and other outpatient providers regarding above concerns Take medications as prescribed Assessment: Risk assessment at time of discharge:? Patient was interviewed prior to discharge and found to be fully oriented and without any SI or HI. Patient has insight and demonstrates good judgment in terms of wanting to pursue treatment. Patient is not in imminent risk of harm to self or others and has a safety plan that includes presenting to the closest ER or calling 911 if feeling unsafe.? Patient has been observed closely by nursing and unit staff throughout admission; patient has not engaged in any behaviors that suggest dangerousness to self or others and has demonstrated appropriate behaviors and impulse control Discharge Date/Time: 01/30/22 15:55
== END 2022-01-30 15:55 | disposition home or self-care (01) | DRG 755 ==
PROVIDERS: Admitting Provider Psychiatry & Neurology Psychiatry; Visit Provider Psychiatry & Neurology Psychiatry
DX: F43.25 Adjustment disorder with mixed disturbance of emotions and conduct (principal); G35 Multiple sclerosis; K21.9 Gastro-esophageal reflux disease without esophagitis; Z79.1 Long term (current) use of non-steroidal anti-inflammatories (NSAID); Z88.0 Allergy status to penicillin; Z88.5 Allergy status to narcotic agent; Z79.899 Other long term (current) drug therapy
CPT/HCPCS: 36415; 80061; 83036; 84443; 87086; Q0163

== ENCOUNTER 2022-05-21 10:55 | Inpatient (IN) | payer OTHER, SELFPAY ==
[2022-05-21 10:59] VITALS: BP 122/70; PULSE 101; O2SAT 98
--- NOTE | 2022-05-21 11:11 | ED.PSYCH ---
HPI - Psych General Chief Complaint: Psychiatric Symptoms Stated Complaint: CRISIS, SI Time Seen by Provider: 05/21/22 11:11 Source: patient Mode of arrival: ambulatory Limitations: no limitations History of Present Illness HPI Narrative: patient states she is suicidal and thought about jumping off the balcony but did not because of her children. Patient is feeling worse because her children are not talking to her. Her children are on vacation in [place] and she is alone now and that is why she is feeling worse. MD complaint: suicidal ideation and feels depressed Onset (ago): week(s) Duration: constant History of same: Yes Relieving factors: none Associated psychiatric symptoms: depression and suicidal ideation Related Data Previous Rx's Medication Instructions Recorded lamotrigine 25 mg tablet 25 mg PO DAILY #30 tabs 05/28/22 nicotine (polacrilex) 2 mg gum 4 mg buccal Q2H PRN Nicotine 05/28/22 Cravings #30 ea olanzapine 2.5 mg tablet 2.5 mg PO Q4H PRN Anxiety #60 tabs 05/28/22 omeprazole 40 mg capsule,delayed 40 mg PO DAILY@0630 #30 caps 05/28/22 release trazodone 50 mg tablet 50 mg PO BEDTIME PRN Insomnia #30 05/28/22 tabs Allergies Allergy/AdvReac Type Severity Reaction Status Date / Time clindamycin Allergy Unknown Unknown Verified 01/25/22 21:48 codeine Allergy Unknown Unknown Verified 01/25/22 21:48 Penicillins Allergy Unknown Unknown Verified 01/25/22 21:48 Review of Systems Constitutional: Constitutional: Reports no additional constitutional complaints Eyes: Eyes: Reports no additional eye complaints ENT: Denies dizziness Cardiovascular: Cardiovascular: Reports no additional cardiovascular complaints Respiratory: Respiratory: Reports as per HPI Gastrointestinal: Gastrointestinal: Reports no additional gastrointestinal complaints Genitourinary: Genitourinary: Reports no additional female genitourinary complaints Musculoskeletal: Musculoskeletal: Reports no additional musculoskeletal complaints Integumentary/Breasts: Skin/Breast: Denies rash Neurologic: Reports system reviewed and no additional complaints, except as documented, Denies dizziness and Denies Sensory deficit (Neuro) Psychiatric: Psychiatric: Denies anxiety PMFSH Past Medical History Medical History Adjustment disorder with mixed disturbance of emotions and conduct GERD (gastroesophageal reflux disease) Social History Social History Household Members: Family Household Members Other:: Sister, Sister's and two children Housing: House Do you presently have visiting nurse or other home services: No Patient Tobacco Use Status: Never used Tobacco Second Hand Smoke Exposure: No Substance Use Type: Marijuana Advance Directives Date on File: 01/31/22 service: No Sexual orientation: Don't Know Physical Exam Vital Signs: Vital Signs: Last Vital Signs Temp 98.3 F 05/28/22 09:21 Pulse 104 H 05/28/22 09:21 Resp 17 05/28/22 09:21 BP 127/80 05/28/22 09:21 Pulse Ox 98 05/28/22 09:21 O2 Del Method 05/28/22 09:21 BMI result Body Mass Index 27.4 Const: Other: female looking older than stated age Nutritional Appearance: average body habitus Orientation/consciousness: oriented to person and patient oriented x3 Limitations: no limitations HEENT: Head: Yes normal to inspection Ears: external ears normal General nose exam: Normal external nose present Mouth: Normal oral and palatal mucosa present and oropharynx normal Throat: Yes posterior oropharynx normal Eyes: General: appearance normal, both eyes and all related structures Neck: Other: supple Neck: Yes normal visual inspection Chest: Chest palpation & inspection: normal inspection of the chest Resp: Auscultation: clear to auscultation bilaterally Cardio: Jugular venous distension: no JVD Rate: regular rate Rhythm: regular rhythm Heart sounds: S1 normal heart sound present and S2 normal heart sound present GI: Inspection: Yes normal to inspection Palpation (GI): Soft to palpation, nontender and No hepatosplenomegaly present Auscultation: normal bowel sounds : General: Yes no CVA tenderness Back/Spine/Pelvis: Back: no CVA tenderness Skin: General skin exam: no rashes or lesions noted Neuro: General: oriented to person and patient oriented x3 Cranial nerves: Yes CN's II-XII intact bilaterally Motor exam (neuro): 5/5 motor strength present throughout Sensory Exam: No Sensory deficit (Neuro) Extrem: General: Yes normal to inspection Psych: Other: tearful, depressed Course Reevaluation(s) Reevaluation #1: Patient placed in physician observation at 6:30pm The indication for observation is that the patient needs more time to see if her depression improves or she will need to be admitted. At this time the patient is well developed well nourished, lungs clear, CV RRR, abd nontender, neuro is intact Time: 18:33 MDM - Psych Lab Data Result diagrams: 05/21/22 11:34 05/21/22 11:34 Labs: Lab Results 05/21/22 05/21/22 05/21/22 Range/Units 11:24 11:24 11:34 WBC (4.8-10.8) X10*3/uL RBC (4.20-5.50) X10*6/uL Hgb (12.0-16.0) g/dl Hct (37.0-47.0) % MCV (80.0-98.0) fL MCH (27.0-33.0) pg MCHC (31.0-35.0) g/dl RDW (11.0-16.0) % Plt Count (160-400) X10*3/uL MPV (9.4-12.3) fL Immature Gran % (Auto) (0.0-0.4) % Neut % (Auto) (45-73) % Lymph % (Auto) (20-40) % [place] % (Auto) (2-11) % Eos % (Auto) (0-4) % Baso % (Auto) (0-2) % Lymph # (Auto) (1.2-4.9) X10*3/uL [place] # (Auto) (0.1-1.2) X10*3/uL Eos # (Auto) (0.0-0.4) X10*3/uL Baso # (Auto) (0.0-0.2) X10*3/uL Abs Immat Gran (auto) (0.00-0.03) X10*3/uL Absolute Neuts (auto) (2.0-8.3) x10*3/uL Absolute Nucleated RBC (0.0-0.012) X10*3/uL Nucleated RBC % (auto) (0.0-0.2) /100WBC Sodium 139 (135-145) mmol/L Potassium 3.9 (3.3-5.1) mmol/L Chloride 106 (96-108) mmol/L Carbon Dioxide 24 (22-29) mmol/L Anion Gap 13 (12-20) BUN 15 (9-16) mg/dL Creatinine 0.90 (0.5-1.4) mg/dL Estim Creat Clear Calc 87.1 Estimated GFR > 60 Random Glucose 99 (60-115) mg/dL Calcium 9.9 (8.4-10.2) mg/dL Total Bilirubin 0.9 (0.0-1.0) mg/dL AST 12 (5-31) U/L ALT 12 (0-31) U/L Alkaline Phosphatase 62 (39-117) U/L Total Protein 7.5 (6.5-8.0) g/dL Albumin 4.7 (3.5-5.0) g/dL Urine Test NEGATIVE (NEGATIVE) Salicylates < 5.0 L (15-30) mg/dL Urine Opiates Screen Not Detected (Not Detect) Urine Fentanyl Screen Not Detected (Not Detect) Acetaminophen < 1 (<30) mcg/mL Ur Barbiturates Screen Not Detected (Not Detect) Ur Phencyclidine Scrn Not Detected (Not Detect) Ur Amphetamines Screen Not Detected (Not Detect) U Benzodiazepines Scrn Not Detected (Not Detect) Urine Cocaine Screen Not Detected (Not Detect) U Marijuana (THC) Screen POSITIVE H (Not Detect) Ethyl Alcohol mg/dL COVID-19 ([facility]) (Negative) COVID-19 Clin Com 05/21/22 05/21/22 05/21/22 Range/Units 11:34 11:34 21:39 WBC 9.2 (4.8-10.8) X10*3/uL RBC 4.95 (4.20-5.50) X10*6/uL Hgb 15.0 (12.0-16.0) g/dl Hct 44.7 (37.0-47.0) % MCV 90.3 (80.0-98.0) fL MCH 30.3 (27.0-33.0) pg MCHC 33.6 (31.0-35.0) g/dl RDW 13.6 (11.0-16.0) % Plt Count 284 (160-400) X10*3/uL MPV 9.8 (9.4-12.3) fL Immature Gran % (Auto) 0.3 (0.0-0.4) % Neut % (Auto) 73.3 H (45-73) % Lymph % (Auto) 20.2 (20-40) % [place] % (Auto) 5.6 (2-11) % Eos % (Auto) 0.1 (0-4) % Baso % (Auto) 0.5 (0-2) % Lymph # (Auto) 1.9 (1.2-4.9) X10*3/uL [place] # (Auto) 0.5 (0.1-1.2) X10*3/uL Eos # (Auto) 0.0 (0.0-0.4) X10*3/uL Baso # (Auto) 0.1 (0.0-0.2) X10*3/uL Abs Immat Gran (auto) 0.03 (0.00-0.03) X10*3/uL Absolute Neuts (auto) 6.7 (2.0-8.3) x10*3/uL Absolute Nucleated RBC 0.000 (0.0-0.012) X10*3/uL Nucleated RBC % (auto) 0.0 (0.0-0.2) /100WBC Sodium (135-145) mmol/L Potassium (3.3-5.1) mmol/L Chloride (96-108) mmol/L Carbon Dioxide (22-29) mmol/L Anion Gap (12-20) BUN (9-16) mg/dL Creatinine (0.5-1.4) mg/dL Estim Creat Clear Calc Estimated GFR Random Glucose (60-115) mg/dL Calcium (8.4-10.2) mg/dL Total Bilirubin (0.0-1.0) mg/dL AST (5-31) U/L ALT (0-31) U/L Alkaline Phosphatase (39-117) U/L Total Protein (6.5-8.0) g/dL Albumin (3.5-5.0) g/dL Urine Test (NEGATIVE) Salicylates (15-30) mg/dL Urine Opiates Screen (Not Detect) Urine Fentanyl Screen (Not Detect) Acetaminophen (<30) mcg/mL Ur Barbiturates Screen (Not Detect) Ur Phencyclidine Scrn (Not Detect) Ur Amphetamines Screen (Not Detect) U Benzodiazepines Scrn (Not Detect) Urine Cocaine Screen (Not Detect) U Marijuana (THC) Screen (Not Detect) Ethyl Alcohol < 10 mg/dL COVID-19 ([facility]) Negative (Negative) COVID-19 Clin Com See Note Discharge Plan Discharge Clinical Impression: MDD (major depressive disorder) Patient Disposition: Admitted As Inpatient Interventions: Admission Worksheet (ED) Last Done: 05/22/22 01:38 Discharge Date/Time: 05/22/22 01:39
[2022-05-21 11:14] VITALS: BP 110/73; PULSE 103; RESP 16; TEMP 37.1; O2SAT 97; BMI 27.4
[2022-05-21 11:38] LABS: UPreg QC Valid YES; Urine Pregnancy NEGATIVE (NEGATIVE)
[2022-05-21 11:43] LABS: MANUAL DIFF FLAG NO
[2022-05-21 11:47] LABS: Basophils Absolute Auto 0.1 X10*3/uL (0.0-0.2); Basophils Percent Auto 0.5 % (0-2); Eosinophils Percent Auto 0.1 % (0-4); Hematocrit 44.7 % (37.0-47.0); Imm Gran Abs Auto 0.03 X10*3/uL (0.00-0.03); Imm Gran Pct Auto 0.3 % (0.0-0.4); Lymphocytes Absolute Auto 1.9 X10*3/uL (1.2-4.9); Lymphocytes Percent Auto 20.2 % (20-40); Mean Corpuscular HGB Conc 33.6 g/dl (31.0-35.0); Mean Corpuscular Hemoglobin 30.3 pg (27.0-33.0); Mean Corpuscular Volume 90.3 fL (80.0-98.0); Mean Platelet Volume 9.8 fL (9.4-12.3); Monocytes Absolute Auto 0.5 X10*3/uL (0.1-1.2); Monocytes Percent Auto 5.6 % (2-11); Neutrophils Absolute Auto 6.7 x10*3/uL (2.0-8.3); Neutrophils Percent Auto 73.3 % (45-73); Platelet Count 284 X10*3/uL (160-400); Red Blood Count 4.95 X10*6/uL (4.20-5.50); Red Cell Distribution Width 13.6 % (11.0-16.0); White Blood Count 9.2 X10*3/uL (4.8-10.8)
[2022-05-21 12:01] LABS: Ethanol < 10 mg/dL
[2022-05-21 12:06] LABS: Acetaminophen LAB < 1 mcg/mL (<30); Alanine Aminotransferase 12 U/L (0-31); Albumin Level 4.7 g/dL (3.5-5.0); Alkaline Phosphatase 62 U/L (39-117); Anion Gap 13 (12-20); Aspartate Amino Transferase 12 U/L (5-31); Bilirubin Total 0.9 mg/dL (0.0-1.0); Blood Urea Nitrogen 15 mg/dL (9-16); Calcium 9.9 mg/dL (8.4-10.2); Carbon Dioxide 24 mmol/L (22-29); Chloride 106 mmol/L (96-108); Creatinine Clr Calc Pharmacy 87.1; Estimated Glomerular Filt Rate > 60; Glucose Random 99 mg/dL (60-115); Potassium 3.9 mmol/L (3.3-5.1); Salicylate < 5.0 mg/dL (15-30); Sodium 139 mmol/L (135-145); Total Protein 7.5 g/dL (6.5-8.0)
[2022-05-21 12:36] LABS: Amphetamine Screen Urine Not Detected (Not Detect); Barbiturates, Urine Not Detected (Not Detect); Benzodiazepines Screen Urine Not Detected (Not Detect); Cannabinoid Screen Urine POSITIVE (Not Detect); Cocaine Screen Urine Not Detected (Not Detect); Fentanyl, urine Not Detected (Not Detect); Opiate Screen Urine Not Detected (Not Detect); Phencyclidine Screen Urine Not Detected (Not Detect)
[2022-05-21] MEDS: ALPRAZolam 0.5 MG TABLET PO (13:48)
--- NOTE | 2022-05-21 14:29 | PC.NURSE ---
PT SITTING IN RECLINER AND IN BEHAVIORAL CONTROL, SHE WAS MEDICATED FOR ANXIETY.
[2022-05-21 17:48] VITALS: BP 90/63; PULSE 86; TEMP 36.8; O2SAT 99
[2022-05-21] MEDS: LORazepam 1 MG TABLET 2 MG PO (21:51)
[2022-05-21 22:02] LABS: COVID-19 Test Negative (Negative)
[2022-05-22 01:45] VITALS: BP 100/65; PULSE 88; RESP 18; TEMP 36.8; O2SAT 98
[2022-05-22] MEDS: hydrOXYzine HCL 25 MG TABLET PO ×2 (01:52→15:27)
--- NOTE | 2022-05-22 02:23 | PC.ADMIT ---
Addendum entered by Tian Astorga RN 05/22/22 03:26: Patent was vague on SI as she was half asleep when arrived but stated she would seek out staff if her thoughts became pronounced to kill herself. Original Note: Patient is a 41 year old female that presented to [facility] secondary to feeling off baseline and have suicidal ideation to jump off a bridge or her third floor balcony. Patient stated that she feels she needs a mood stabilizer and wants to start on lamictal. Patient reports increase in anxiety and depression and is having poor sleep. Patient reports racing thoughts with some mood irritability. Patient denies any HI or AH/VH. Patient arrived on the unit at 0140 and signed a CV. Patient reported she was tired and requested to go to bed. Patient given brief tour of unit and walked to her room.
[2022-05-22 08:48] VITALS: BP 100/58; PULSE 87; RESP 16; TEMP 36.6; O2SAT 97
[2022-05-22 09:02] VITALS: BMI 29.9
[2022-05-22] MEDS: LORazepam 1 MG TABLET PO (09:16)
--- NOTE | 2022-05-22 10:19 | P.HPPS_ITS ---
HPI Date of Service: 05/22/22 Chief Complaint: SI Sources of Information: patient interviewed, chart reviewed and crisis/core team assessment reviewed HPI Subjective Notes: Junior Warning and Conditional Voluntary Narrative: Ms. Bradshaw is a 41 year-old woman with hx of cocaine use disorder in remission since 2020 and MS. Parra apparently also has hx of Bipolar Disorder. She was recently admitted to due to confusion and disorganized behaviors-brief admission as pt fairly quickly cleared up. Pt had been sectioned 35, discharged sometime in January of 2022. It appears she has not used cocaine since then. She reports she is living with her sister but this is not helping. Pt reports sister being mean to her. She self presented to [facility] reporting increase depressed mood, suicidal ideation in the past few weeks. In the ED, her utox was positive for cannabinoids. On the unit, Ms. Bradshaw reports that once she was discharged from she did not follow up with psychiatric appointments. She reports she stopped taking medications. She reports current stressors are related to relationship with his sister who let her stay with her after being sectioned 35 as pt has been homeless for years. Pt today reports she can't live with her sister and asks that she is referred to residential substance use treatment program. She reports she is off, which she later describes as feeling depressed and suicidal. On the other hand, pt presents as future oriented reporting that she wants a better life, that she is mostly at home doing nothing. She states she wants to get better so she is a better parent. Pt reports her sister is accusing her of looking for drugs, which she denies using any substances recently. Pt reports in the past lamictal was helpful for depression but reports she has not been on this medication for a long time. She denies visual or auditory hallucinations. Past Psychiatric History: Inpatient: 01/26/2022 due to disorganized/confused behavior OP: none (reports she did not follow up with OP services) Suicide attempt: several years jump off [employer] as suicide attempt Past medication trials: topamax ( for headache), Invega, risperidone, lamictal (reports helpful for depression) Medical Evaluation Reviewed: Yes Labs on 05/21/2022- CBC wnl, CMP wnl, pregnacy test negative, EKG 01/26/2022 normal sinus rhythm, normal ekg 01/26/2022- wnl lipid panel, A1c 5.4% [facility] Medical History Adjustment disorder with mixed disturbance of emotions and conduct GERD (gastroesophageal reflux disease) Family History: father: alcohol abuse sister: substance abuse Social History: did not finish HS has 3 kids, plans to give them up for adoption Substance History: cocaine use in remission for 3-4 months now. cannabis use. Trauma History: childhood through adult Diagnostics Vital Signs (24Hr): Vital Signs - 24 hr 05/21/22 11:14 05/21/22 17:48 05/22/22 01:45 Temperature 98.8 F 98.2 F 98.2 F Pulse Rate 103 H 86 88 Respiratory Rate 16 18 Blood Pressure 110/73 90/63 100/65 Pulse Oximetry 97 99 98 Oxygen Delivery Method Room Air Room Air Room Air 05/22/22 08:48 Temperature 97.8 F Pulse Rate 87 Respiratory Rate 16 Blood Pressure 100/58 L Pulse Oximetry 97 Oxygen Delivery Method Room Air BMI result Body Mass Index 29.9 Labs Results: 05/21/22 11:34 05/21/22 11:34 Labs: Laboratory Results - last 48 hr 05/21/22 05/21/22 05/21/22 11:24 11:24 11:34 WBC RBC Hgb Hct MCV MCH MCHC RDW Plt Count MPV Immature Gran % (Auto) Neut % (Auto) Lymph % (Auto) [place] % (Auto) Eos % (Auto) Baso % (Auto) Lymph # (Auto) [place] # (Auto) Eos # (Auto) Baso # (Auto) Abs Immat Gran (auto) Absolute Neuts (auto) Absolute Nucleated RBC Nucleated RBC % (auto) Sodium 139 Potassium 3.9 Chloride 106 Carbon Dioxide 24 Anion Gap 13 BUN 15 Creatinine 0.90 Estim Creat Clear Calc 87.1 Estimated GFR > 60 Random Glucose 99 Calcium 9.9 Total Bilirubin 0.9 AST 12 ALT 12 Alkaline Phosphatase 62 Total Protein 7.5 Albumin 4.7 Urine Test NEGATIVE Salicylates < 5.0 L Urine Opiates Screen Not Detected Urine Fentanyl Screen Not Detected Acetaminophen < 1 Ur Barbiturates Screen Not Detected Ur Phencyclidine Scrn Not Detected Ur Amphetamines Screen Not Detected U Benzodiazepines Scrn Not Detected Urine Cocaine Screen Not Detected U Marijuana (THC) Screen POSITIVE H Ethyl Alcohol COVID-19 ([facility]) COVID-19 Clin Com 05/21/22 05/21/22 05/21/22 11:34 11:34 21:39 WBC 9.2 RBC 4.95 Hgb 15.0 Hct 44.7 MCV 90.3 MCH 30.3 MCHC 33.6 RDW 13.6 Plt Count 284 MPV 9.8 Immature Gran % (Auto) 0.3 Neut % (Auto) 73.3 H Lymph % (Auto) 20.2 [place] % (Auto) 5.6 Eos % (Auto) 0.1 Baso % (Auto) 0.5 Lymph # (Auto) 1.9 [place] # (Auto) 0.5 Eos # (Auto) 0.0 Baso # (Auto) 0.1 Abs Immat Gran (auto) 0.03 Absolute Neuts (auto) 6.7 Absolute Nucleated RBC 0.000 Nucleated RBC % (auto) 0.0 Sodium Potassium Chloride Carbon Dioxide Anion Gap BUN Creatinine Estim Creat Clear Calc Estimated GFR Random Glucose Calcium Total Bilirubin AST ALT Alkaline Phosphatase Total Protein Albumin Urine Test Salicylates Urine Opiates Screen Urine Fentanyl Screen Acetaminophen Ur Barbiturates Screen Ur Phencyclidine Scrn Ur Amphetamines Screen U Benzodiazepines Scrn Urine Cocaine Screen U Marijuana (THC) Screen Ethyl Alcohol < 10 COVID-19 ([facility]) Negative COVID-19 Clin Com See Note Meds/Allergies Allergies Allergies Allergy/AdvReac Type Severity Reaction Status Date / Time clindamycin Allergy Unknown Unknown Verified 01/25/22 21:48 codeine Allergy Unknown Unknown Verified 01/25/22 21:48 Penicillins Allergy Unknown Unknown Verified 01/25/22 21:48 Mental Status Exam Mental Status Exam Narrative: Appearance: casually groomed, fair hygiene in NAD Behavior:guarded, somewhat irritable psychomotor:perioral involuntary movement, tapping bilat feet (which pt reports is anxiety, but appears involuntary movements) Speech:clear, regular rate/rhythm/volume, spontaneous Thought process:mostly linear Thought content:no overt psychosis, upset with sister, wanting new housing environment Mood: anxious Affect: irritable SI:denies HI:denies VH/AH:denies Delusions:denies Insight/judgment:poor x 2. Memory/cog: alert, oriented x 3. some gaps in memory but not formally tested. Assessment & Plan Assessment & Plan (1) Bipolar 2 disorder, major depressive episode: Status: Acute Code(s): F31.81 - Bipolar II disorder (2) Cocaine use disorder, moderate, in early remission: Status: Acute Code(s): F14.21 - Cocaine dependence, in remission (3) Multiple sclerosis: Status: Acute Code(s): G35 - Multiple sclerosis Plan Mrs. Bradshaw is a 41 year-old woman with hx of cocaine use in early remission, Bipolar type 2 Disorder, self presented to [facility] reporting increase anxious mood, depression, suicidal ideation. Utox positive for cannabinoids. She reports problems with sister with whom she has resided since she was discharged from section 35 back in January of 2022. Pt last admitted to [facility] in 01/2022 for confusion, which quickly resolved, pt was connected with new psychiatric providers, however, pt reports she did not follow up with them. After discussing risks, benefits and alternative treatment options, pt agrees to start lamictal for depression, which she reports has been helpful for her in the past. PLAN 1. admit to [facility], cv 15 minutes checks for safety 2. re-start lamictal 25mg po qhs. pt declines any other medications 3. obtain collateral information 4. aftercare planning. Patient educated on: diagnosis Reason for continued inpatient stay Substantial Risk for: harm to self
[2022-05-22] MEDS: Omeprazole 40 MG CAPSULE.DR PO (17:53)
[2022-05-23 08:35] VITALS: BP 102/67; PULSE 82; RESP 16; TEMP 36.7; O2SAT 96
[2022-05-23] MEDS: Omeprazole 40 MG CAPSULE.DR PO (08:36)
[2022-05-23] MEDS: Nicotine Polacrilex 2 MG GUM 4 MG BUCCAL ×2 (09:07→15:28)
--- NOTE | 2022-05-23 11:10 | P.PNPSI_ITS ---
Subjective Subjective Date of Service: 05/23/22 Reason For Visit: SI Subjective Notes: Conditional Voluntary Interim History: Pt reports mood is up and down. She reports passive SI but denies any plan or intent to hurt herself. She continues to report that she does not have good relationship with sister and does not think going back is good for her. However, pt does not have place to live and does understand that that may not change by time she lives as our resources are limited. She reports she slept well. No AH/VH. No delusions reported or noted. Medication Compliance: Yes Side effects from medications: No Attending Groups: No Review of Systems Acute medical concerns: No Review of Systems Constitutional: Reports no additional constitutional complaints, Denies headache (s) and Reports lethargy Eyes: Reports no additional eye complaints Reports system reviewed and no additional complaints, except as documented, Denies dizziness and Denies headache(s) Cardiovascular: Reports no additional cardiovascular complaints, Denies chest pain, Denies Loss of Consciousness and Denies dyspnea Respiratory: Reports as per HPI and Denies dyspnea Gastrointestinal: Reports no additional gastrointestinal complaints Musculoskeletal: Reports no additional musculoskeletal complaints Skin/Breast: Denies rash Reports system reviewed and no additional complaints, except as documented, Denies dizziness, Denies headache(s) and Denies Sensory deficit (Neuro) Psychiatric: Denies anxiety Mental Status Exam Mental Status Exam Narrative: Appearance: casually groomed, fair hygiene in NAD Behavior:guarded, somewhat irritable psychomotor:perioral involuntary movement, tapping bilat feet (which pt reports is anxiety, but appears involuntary movements) Speech:clear, regular rate/rhythm/volume, spontaneous Thought process:mostly linear Thought content:no overt psychosis, upset with sister, wanting new housing environment Mood: anxious Affect: irritable SI:denies HI:denies VH/AH:denies Delusions:denies Insight/judgment:poor x 2. Memory/cog: alert, oriented x 3. some gaps in memory but not formally tested. Diagnostics Vital Signs (24Hr): Vital Signs - 24 hr 05/23/22 08:35 Temperature 98.1 F Pulse Rate 82 Respiratory Rate 16 Blood Pressure 102/67 Pulse Oximetry 96 Oxygen Delivery Method Room Air BMI result Body Mass Index 29.9 Labs Results: 05/21/22 11:34 05/21/22 11:34 Labs: Laboratory Results - last 48 hr 05/21/22 05/21/22 05/21/22 11:24 11:24 11:34 WBC RBC Hgb Hct MCV MCH MCHC RDW Plt Count MPV Immature Gran % (Auto) Neut % (Auto) Lymph % (Auto) Bradley % (Auto) Eos % (Auto) Baso % (Auto) Lymph # (Auto) Bradley # (Auto) Eos # (Auto) Baso # (Auto) Abs Immat Gran (auto) Absolute Neuts (auto) Absolute Nucleated RBC Nucleated RBC % (auto) Sodium 139 Potassium 3.9 Chloride 106 Carbon Dioxide 24 Anion Gap 13 BUN 15 Creatinine 0.90 Estim Creat Clear Calc 87.1 Estimated GFR > 60 Random Glucose 99 Calcium 9.9 Total Bilirubin 0.9 AST 12 ALT 12 Alkaline Phosphatase 62 Total Protein 7.5 Albumin 4.7 Urine Test NEGATIVE Salicylates < 5.0 L Urine Opiates Screen Not Detected Urine Fentanyl Screen Not Detected Acetaminophen < 1 Ur Barbiturates Screen Not Detected Ur Phencyclidine Scrn Not Detected Ur Amphetamines Screen Not Detected U Benzodiazepines Scrn Not Detected Urine Cocaine Screen Not Detected U Marijuana (THC) Screen POSITIVE H Ethyl Alcohol COVID-19 ([facility]) COVID-19 Clin [facility] 05/21/22 05/21/22 05/21/22 11:34 11:34 21:39 WBC 9.2 RBC 4.95 Hgb 15.0 Hct 44.7 MCV 90.3 MCH 30.3 MCHC 33.6 RDW 13.6 Plt Count 284 MPV 9.8 Immature Gran % (Auto) 0.3 Neut % (Auto) 73.3 H Lymph % (Auto) 20.2 Bradley % (Auto) 5.6 Eos % (Auto) 0.1 Baso % (Auto) 0.5 Lymph # (Auto) 1.9 Bradley # (Auto) 0.5 Eos # (Auto) 0.0 Baso # (Auto) 0.1 Abs Immat Gran (auto) 0.03 Absolute Neuts (auto) 6.7 Absolute Nucleated RBC 0.000 Nucleated RBC % (auto) 0.0 Sodium Potassium Chloride Carbon Dioxide Anion Gap BUN Creatinine Estim Creat Clear Calc Estimated GFR Random Glucose Calcium Total Bilirubin AST ALT Alkaline Phosphatase Total Protein Albumin Urine Test Salicylates Urine Opiates Screen Urine Fentanyl Screen Acetaminophen Ur Barbiturates Screen Ur Phencyclidine Scrn Ur Amphetamines Screen U Benzodiazepines Scrn Urine Cocaine Screen U Marijuana (THC) Screen Ethyl Alcohol < 10 COVID-19 ([facility]) Negative COVID-19 Clin Com See Note Medications Medications Current Medications Acetaminophen (Acetaminophen 325 Mg Tablet) 650 mg PO Q6H PRN PRN Reason: Headache/Pain Mild Scale (1-3) Al Hydroxide/Mg Hydroxide (Magnesium Hydrox/Alum Hydrox 30 Ml Oral.Susp) 30 ml PO Q6H PRN PRN Reason: Heartburn/Nausea Hydroxyzine HCl (Hydroxyzine Hcl 25 Mg Tablet) 25 mg PO Q6H PRN PRN Reason: Anxiety Last Admin: 05/22/22 15:27 Dose: 25 mg Magnesium Hydroxide (Milk Of Magnesia 30 Ml Oral.Susp) 30 ml PO DAILY PRN PRN Reason: Constipation Nicotine Polacrilex (Nicotine Polacrilex 2 Mg Gum) 4 mg BUCCAL Q2H PRN PRN Reason: Nicotine Cravings Last Admin: 05/23/22 09:07 Dose: 4 mg Omeprazole (Omeprazole 40 Mg Capsule.Dr) 40 mg PO DAILY@0630 [facility] Last Admin: 05/23/22 08:36 Dose: 40 mg Quetiapine Fumarate (Quetiapine Fumarate 50 Mg Tablet) 50 mg PO Q4H PRN PRN Reason: agitation Trazodone HCl (Trazodone Hcl 50 Mg Tablet) 50 mg PO BEDTIME PRN PRN Reason: Insomnia Allergies Allergies Allergy/AdvReac Type Severity Reaction Status Date / Time clindamycin Allergy Unknown Unknown Verified 01/25/22 21:48 codeine Allergy Unknown Unknown Verified 01/25/22 21:48 Penicillins Allergy Unknown Unknown Verified 01/25/22 21:48 Assessment & Plan Assessment & Plan (1) Bipolar 2 disorder, major depressive episode: Status: Acute Code(s): F31.81 - Bipolar II disorder (2) Cocaine use disorder, moderate, in early remission: Status: Acute Code(s): F14.21 - Cocaine dependence, in remission (3) Multiple sclerosis: Status: Acute Code(s): G35 - Multiple sclerosis Plan Mrs. Bradshaw is a 41 year-old woman with hx of cocaine use in early remission, Bipolar type 2 Disorder, self presented to [facility] ED reporting increase anxious mood, depression, suicidal ideation. Utox positive for cannabinoids. She reports problems with sister with whom she has resided since she was [facility] back in January of 2022. Pt last admitted to [facility] in 01/2022 for confusion, which quickly resolved, pt was connected with new psychiatric providers, however, pt reports she did not follow up with them. After discussing risks, benefits and alternative treatment options, pt agrees to start lamictal for depression, which she reports has been helpful for her in the past. PLAN 1. admit to [facility], cv 15 minutes checks for safety 2. re-start lamictal 25mg po qhs. pt declines any other medications 3. obtain collateral information 4. aftercare planning. 05/23 continue lamictal. I spent _25 minutes with the patient and/or on the patient floor today, greater than?50% of which was spent counseling/coordinating care. Reason for contiued inpatient stay Substantial Risk for: harm to self
[2022-05-23] MEDS: lamoTRIgine 25 MG TABLET PO (11:32)
[2022-05-23] MEDS: cloNIDine HCL 0.1 MG TABLET PO (13:02)
[2022-05-23] MEDS: hydrOXYzine HCL 25 MG TABLET PO (18:36)
[2022-05-23 19:50] VITALS: BP 120/59; PULSE 85; RESP 18; TEMP 36.4; O2SAT 99
[2022-05-23] MEDS: Acetaminophen 325 MG TABLET 650 MG PO (22:47)
[2022-05-24] MEDS: lamoTRIgine 25 MG TABLET PO (09:29)
[2022-05-24] MEDS: Omeprazole 40 MG CAPSULE.DR PO (09:29)
[2022-05-24 09:45] VITALS: PULSE 89; RESP 18; TEMP 36.3; O2SAT 98
[2022-05-24] MEDS: hydrOXYzine HCL 25 MG TABLET PO (10:47)
[2022-05-24] MEDS: Acetaminophen 325 MG TABLET 650 MG PO (10:47)
--- NOTE | 2022-05-24 16:29 | P.PNPSI_ITS ---
Subjective Subjective Date of Service: 05/24/22 Reason For Visit: SI Interim History: observed in the milieu, very visible and socially active. easily engaged for interview. asking for something for anxiety, notes she has clonidine, hydroxyzine, and seroquel available. states she won't take seroquel bcse it makes her feel drunk, MD replaces it with zyprexa at low dose PRN. pt states she probably won't try that, either, even though she's never had it before. not other changes made. per staff, pt has been irritable. Mental Status Exam Mental Status Exam Narrative: Appearance: casually groomed, fair hygiene in NAD Behavior:guarded, somewhat irritable psychomotor:perioral involuntary movement, tapping bilat feet (which pt reports is anxiety, but appears involuntary movements) Speech:clear, regular rate/rhythm/volume, spontaneous Thought process:mostly linear Thought content:no overt psychosis, upset with sister, wanting new housing environment Mood: anxious Affect: irritable SI:denies HI:denies VH/AH:denies Delusions:denies Insight/judgment:poor x 2. Memory/cog: alert, oriented x 3. some gaps in memory but not formally tested. Diagnostics Vital Signs (24Hr): Vital Signs - 24 hr 05/23/22 19:50 05/24/22 09:45 Temperature 97.6 F 97.3 F Pulse Rate 85 89 Respiratory Rate 18 18 Blood Pressure 120/59 L Pulse Oximetry 99 98 Oxygen Delivery Method Room Air Room Air BMI result Body Mass Index 29.9 Labs Results: 05/21/22 11:34 05/21/22 11:34 Medications Medications Current Medications Acetaminophen (Acetaminophen 325 Mg Tablet) 650 mg PO Q6H PRN PRN Reason: Headache/Pain Mild Scale (1-3) Last Admin: 05/24/22 10:47 Dose: 650 mg Al Hydroxide/Mg Hydroxide (Magnesium Hydrox/Alum Hydrox 30 Ml Oral.Susp) 30 ml PO Q6H PRN PRN Reason: Heartburn/Nausea Clonidine HCl (Clonidine Hcl 0.1 Mg Tablet) 0.1 mg PO Q6H PRN; Protocol PRN Reason: Anxiety Last Admin: 05/23/22 13:02 Dose: 0.1 mg Hydroxyzine HCl (Hydroxyzine Hcl 25 Mg Tablet) 25 mg PO Q6H PRN PRN Reason: Anxiety Last Admin: 05/24/22 10:47 Dose: 25 mg Lamotrigine (Lamotrigine 25 Mg Tablet) 25 mg PO DAILY [facility] Last Admin: 05/24/22 09:29 Dose: 25 mg Magnesium Hydroxide (Milk Of Magnesia 30 Ml Oral.Susp) 30 ml PO DAILY PRN PRN Reason: Constipation Nicotine Polacrilex (Nicotine Polacrilex 2 Mg Gum) 4 mg BUCCAL Q2H PRN PRN Reason: Nicotine Cravings Last Admin: 05/23/22 15:28 Dose: 4 mg Olanzapine (Olanzapine 2.5 Mg Tablet) 2.5 mg PO Q4H PRN PRN Reason: Anxiety Omeprazole (Omeprazole 40 Mg Capsule.Dr) 40 mg PO DAILY@0630 [facility] Last Admin: 05/24/22 09:29 Dose: 40 mg Trazodone HCl (Trazodone Hcl 50 Mg Tablet) 50 mg PO BEDTIME PRN PRN Reason: Insomnia Allergies Allergies Allergy/AdvReac Type Severity Reaction Status Date / Time clindamycin Allergy Unknown Unknown Verified 01/25/22 21:48 codeine Allergy Unknown Unknown Verified 01/25/22 21:48 Penicillins Allergy Unknown Unknown Verified 01/25/22 21:48 Assessment & Plan Assessment & Plan (1) Bipolar 2 disorder, major depressive episode: Status: Acute Code(s): F31.81 - Bipolar II disorder (2) Cocaine use disorder, moderate, in early remission: Status: Acute Code(s): F14.21 - Cocaine dependence, in remission (3) Multiple sclerosis: Status: Acute Code(s): G35 - Multiple sclerosis Plan Mrs. Bradshaw is a 41 year-old woman with hx of cocaine use in early remission, Bipolar type 2 Disorder, self presented to [facility] reporting increase anxious mood, depression, suicidal ideation. Utox positive for cannabinoids. She reports problems with sister with whom she has resided since she was discharged from [facility] back in January of 2022. Pt last admitted to [facility] in 01/2022 for confusion, which quickly resolved, pt was connected with new psychiatric providers, however, pt reports she did not follow up with them. After discussing risks, benefits and alternative treatment options, pt agrees to start lamictal for depression, which she reports has been helpful for her in the past. PLAN 1. admit to [facility], cv 15 minutes checks for safety 2. re-start lamictal 25mg po qhs. pt declines any other medications 3. obtain collateral information 4. aftercare planning. 05/23 continue lamictal. 05/24: DC seroquel PRNs at pt request. added zyprexa PRNs by way of replacement. I spent ___15___ minutes with the patient and/or on the patient floor today, greater than?50% of which was spent counseling/coordinating care. Reason for contiued inpatient stay Substantial Risk for: inability to function and rapid decompensation
[2022-05-25 06:00] VITALS: BP 102/60; PULSE 90; RESP 18; TEMP 36.8; O2SAT 96
[2022-05-25] MEDS: lamoTRIgine 25 MG TABLET PO (09:11)
[2022-05-25] MEDS: Omeprazole 40 MG CAPSULE.DR PO (09:11)
[2022-05-25] MEDS: Acetaminophen 325 MG TABLET 650 MG PO (10:48)
--- NOTE | 2022-05-25 15:55 | P.PNPSI_ITS ---
Subjective Subjective Date of Service: 05/25/22 Reason For Visit: SI Interim History: no complaints or requests. calm, cooperative, dressed in [place]. per staff, slept well. no concerning behaviors or events. Mental Status Exam Mental Status Exam Narrative: Appearance: casually groomed, fair hygiene in NAD Behavior: no PMA/PMR. Speech:clear, regular rate/rhythm/volume, spontaneous Thought process:mostly linear Thought content:no overt psychosis Mood: not assessed Affect: calm, normo-intense, non-labile. full range. SI: none expressed HI: none expressed VH/AH: none expressed Delusions: none expressed Insight/judgment:poor x 2. Memory/cog: alert, oriented x 3. some gaps in memory but not formally tested. Diagnostics Vital Signs (24Hr): Vital Signs - 24 hr 05/25/22 06:00 Temperature 98.3 F Pulse Rate 90 Respiratory Rate 18 Blood Pressure 102/60 Pulse Oximetry 96 Oxygen Delivery Method Room Air BMI result Body Mass Index 29.9 Labs Results: 05/21/22 11:34 05/21/22 11:34 Medications Medications Current Medications Acetaminophen (Acetaminophen 325 Mg Tablet) 650 mg PO Q6H PRN PRN Reason: Headache/Pain Mild Scale (1-3) Last Admin: 05/25/22 10:48 Dose: 650 mg Al Hydroxide/Mg Hydroxide (Magnesium Hydrox/Alum Hydrox 30 Ml Oral.Susp) 30 ml PO Q6H PRN PRN Reason: Heartburn/Nausea Clonidine HCl (Clonidine Hcl 0.1 Mg Tablet) 0.1 mg PO Q6H PRN; Protocol PRN Reason: Anxiety Last Admin: 05/23/22 13:02 Dose: 0.1 mg Hydroxyzine HCl (Hydroxyzine Hcl 25 Mg Tablet) 25 mg PO Q6H PRN PRN Reason: Anxiety Last Admin: 05/24/22 10:47 Dose: 25 mg Lamotrigine (Lamotrigine 25 Mg Tablet) 25 mg PO DAILY [facility] Last Admin: 05/25/22 09:11 Dose: 25 mg Magnesium Hydroxide (Milk Of Magnesia 30 Ml Oral.Susp) 30 ml PO DAILY PRN PRN Reason: Constipation Nicotine Polacrilex (Nicotine Polacrilex 2 Mg Gum) 4 mg BUCCAL Q2H PRN PRN Reason: Nicotine Cravings Last Admin: 05/23/22 15:28 Dose: 4 mg Olanzapine (Olanzapine 2.5 Mg Tablet) 2.5 mg PO Q4H PRN PRN Reason: Anxiety Omeprazole (Omeprazole 40 Mg Capsule.Dr) 40 mg PO DAILY@0630 [facility] Last Admin: 05/25/22 09:11 Dose: 40 mg Trazodone HCl (Trazodone Hcl 50 Mg Tablet) 50 mg PO BEDTIME PRN PRN Reason: Insomnia Allergies Allergies Allergy/AdvReac Type Severity Reaction Status Date / Time clindamycin Allergy Unknown Unknown Verified 01/25/22 21:48 codeine Allergy Unknown Unknown Verified 01/25/22 21:48 Penicillins Allergy Unknown Unknown Verified 01/25/22 21:48 Assessment & Plan Assessment & Plan (1) Bipolar 2 disorder, major depressive episode: Status: Acute Code(s): F31.81 - Bipolar II disorder (2) Cocaine use disorder, moderate, in early remission: Status: Acute Code(s): F14.21 - Cocaine dependence, in remission (3) Multiple sclerosis: Status: Acute Code(s): G35 - Multiple sclerosis Plan Mrs. Bradshaw is a 41 year-old woman with hx of cocaine use in early remission, Bipolar type 2 Disorder, self presented to [facility] [facility] reporting increase anxious mood, depression, suicidal ideation. Utox positive for cannabinoids. She reports problems with sister with whom she has resided since she was discharged from [place] [facility] back in January of 2022. Pt last admitted to [facility] in 01/2022 for confusion, which quickly resolved, pt was connected with new psychiatric providers, however, pt reports she did not follow up with them. After discussing risks, benefits and alternative treatment options, pt agrees to start lamictal for depression, which she reports has been helpful for her in the past. PLAN 1. admit to [facility], cv 15 minutes checks for safety 2. re-start lamictal 25mg po qhs. pt declines any other medications 3. obtain collateral information 4. aftercare planning. 05/23 continue lamictal. 05/24: DC seroquel PRNs at pt request. added zyprexa PRNs by way of replacement. 05/25: no changes. stable presentation. hoping for discharge to her grandmother's house in [place]. I spent __10____ minutes with the patient and/or on the patient floor today, greater than?50% of which was spent counseling/coordinating care. Reason for contiued inpatient stay Substantial Risk for: inability to function and rapid decompensation
[2022-05-26] MEDS: cloNIDine HCL 0.1 MG TABLET PO (00:04)
[2022-05-26 00:06] VITALS: BP 109/74; PULSE 71; RESP 18; O2SAT 98
[2022-05-26 06:00] VITALS: BP 100/61; PULSE 100; RESP 16; TEMP 36.6; O2SAT 97
[2022-05-26] MEDS: Omeprazole 40 MG CAPSULE.DR PO (09:31)
[2022-05-26] MEDS: lamoTRIgine 25 MG TABLET PO (09:31)
--- NOTE | 2022-05-26 11:33 | P.PNPSI_ITS ---
Subjective Subjective Date of Service: 05/26/22 Reason For Visit: SI Subjective Notes: Conditional Voluntary Interim History: Pt reports she was able to fall asleep at midnight, prior to that tossing and turning. She reports her mood is better, no SI/HI. no irritability. She reports lamictal helpful. She states she will go to [place] with Grandmother but then plans to return to [place] to her sister's house. Per nursing, she has been visible, attends groups, appropriate. Medication Compliance: Yes Review of Systems Constitutional: Reports no additional constitutional complaints, Denies headache(s) and Reports lethargy Eyes: Reports no additional eye complaints Reports system reviewed and no additional complaints, except as documented, De nies dizziness and Denies headache(s) Cardiovascular: Reports no additional cardiovascular complaints, Denies chest pain, Denies Loss of Consciousness and Denies dyspnea Respiratory: Reports as per HPI and Denies dyspnea Gastrointestinal: Reports no additional gastrointestinal complaints Musculoskeletal: Reports no additional musculoskeletal complaints Skin/Breast: Denies rash Reports system reviewed and no additional complaints, except as documented, Denies dizziness, Denies headache(s) and Denies Sensory deficit (Neuro) Psychiatric: Denies anxiety Mental Status Exam Mental Status Exam Narrative: Appearance: casually groomed, fair hygiene in NAD Behavior: no PMA/PMR. Speech:clear, regular rate/rhythm/volume, spontaneous Thought process:mostly linear Thought content:no overt psychosis Mood: good Affect: calm, normo-intense, non-labile. full range. SI: none expressed HI: none expressed VH/AH: none expressed Delusions: none expressed Insight/judgment:poor x 2. Memory/cog: alert, oriented x 3. some gaps in memory but not formally tested. Diagnostics Vital Signs (24Hr): Vital Signs - 24 hr 05/26/22 00:06 05/26/22 06:00 Temperature 97.9 F Pulse Rate 71 100 Respiratory Rate 18 16 Blood Pressure 109/74 100/61 Pulse Oximetry 98 97 Oxygen Delivery Method Room Air Room Air BMI result Body Mass Index 29.9 Labs Results: 05/21/22 11:34 05/21/22 11:34 Medications Medications Current Medications Acetaminophen (Acetaminophen 325 Mg Tablet) 650 mg PO Q6H PRN PRN Reason: Headache/Pain Mild Scale (1-3) Last Admin: 05/25/22 10:48 Dose: 650 mg Al Hydroxide/Mg Hydroxide (Magnesium Hydrox/Alum Hydrox 30 Ml Oral.Susp) 30 ml PO Q6H PRN PRN Reason: Heartburn/Nausea Clonidine HCl (Clonidine Hcl 0.1 Mg Tablet) 0.1 mg PO Q6H PRN; Protocol PRN Reason: Anxiety Last Admin: 05/26/22 00:04 Dose: 0.1 mg Hydroxyzine HCl (Hydroxyzine Hcl 25 Mg Tablet) 25 mg PO Q6H PRN PRN Reason: Anxiety Last Admin: 05/24/22 10:47 Dose: 25 mg Lamotrigine (Lamotrigine 25 Mg Tablet) 25 mg PO DAILY [facility] Last Admin: 05/26/22 09:31 Dose: 25 mg Magnesium Hydroxide (Milk Of Magnesia 30 Ml Oral.Susp) 30 ml PO DAILY PRN PRN Reason: Constipation Nicotine Polacrilex (Nicotine Polacrilex 2 Mg Gum) 4 mg BUCCAL Q2H PRN PRN Reason: Nicotine Cravings Last Admin: 05/23/22 15:28 Dose: 4 mg Olanzapine (Olanzapine 2.5 Mg Tablet) 2.5 mg PO Q4H PRN PRN Reason: Anxiety Omeprazole (Omeprazole 40 Mg Capsule.Dr) 40 mg PO DAILY@0630 [facility] Last Admin: 05/26/22 09:31 Dose: 40 mg Trazodone HCl (Trazodone Hcl 50 Mg Tablet) 50 mg PO BEDTIME PRN PRN Reason: Insomnia Allergies Allergies Allergy/AdvReac Type Severity Reaction Status Date / Time clindamycin Allergy Unknown Unknown Verified 01/25/22 21:48 codeine Allergy Unknown Unknown Verified 01/25/22 21:48 Penicillins Allergy Unknown Unknown Verified 01/25/22 21:48 Assessment & Plan Assessment & Plan (1) Bipolar 2 disorder, major depressive episode: Status: Acute Code(s): F31.81 - Bipolar II disorder (2) Cocaine use disorder, moderate, in early remission: Status: Acute Code(s): F14.21 - Cocaine dependence, in remission (3) Multiple sclerosis: Status: Acute Code(s): G35 - Multiple sclerosis Plan Mrs. Bradshaw is a 41 year-old woman with hx of cocaine use in early remission, Bipolar type 2 Disorder, self presented to [facility] ED reporting increase anxious mood, depression, suicidal ideation. Utox positive for cannabinoids. She reports problems with sister with whom she has resided since she was discharged from [facility] in January of 2022. Pt last admitted to [facility] in 01/2022 for confusion, which quickly resolved, pt was connected with new psychiatric providers, however, pt reports she did not follow up with them. After discussing risks, benefits and alternative treatment options, pt agrees to start lamictal for depression, which she reports has been helpful for her in the past. PLAN 1. admit to [facility], cv 15 minutes checks for safety 2. re-start lamictal 25mg po qhs. pt declines any other medications 3. obtain collateral information 4. aftercare planning. 05/23 continue lamictal. 05/24: DC seroquel PRNs at pt request. added zyprexa PRNs by way of replacement. 05/25: no changes. stable presentation. hoping for discharge to her grandmother's house in [place]. 05/26 continue current medications. I spent minutes with the patient and/or on the patient floor today, greater than?50% of which was spent counseling/coordinating care. Reason for contiued inpatient stay Substantial Risk for: harm to self
[2022-05-26 20:30] VITALS: BP 111/65; PULSE 78; RESP 16; TEMP 36.8; O2SAT 99
[2022-05-26] MEDS: OLANZapine 2.5 MG TABLET PO (22:59)
[2022-05-27] MEDS: lamoTRIgine 25 MG TABLET PO (09:00)
[2022-05-27] MEDS: Omeprazole 40 MG CAPSULE.DR PO (09:00)
[2022-05-27 10:30] VITALS: BP 128/62; PULSE 76; RESP 17; TEMP 36.7; O2SAT 98
--- NOTE | 2022-05-27 15:36 | HO.PSYCHPN ---
Subjective Subjective Date of Service: 05/27/22 Reason For Visit: SI Subjective Notes: Conditional Voluntary Interim History: Pt reports she slept better last night. She denies SI/HI. She reports relationship with sister is better and she she's okay to return to her sisters' house after going to [place]. Pt has been visible in the unit, social with peers. No behavioral concerns. Medication Compliance: Yes Side effects from medications: No Review of Systems Constitutional: Reports no additional constitutional complaints, Denies headache(s) and Reports lethargy Eyes: Reports no additional eye complaints Reports system reviewed and no additional complaints, except as documented, Denies dizziness and Denies headache(s) Cardiovascular: Reports no additional cardiovascular complaints, Denies chest pain, Denies Loss of Consciousness and Denies dyspnea Respiratory: Reports as per HPI and Denies dyspnea Gastrointestinal: Reports no additional gastrointestinal complaints Musculoskeletal: Reports no additional musculoskeletal complaints Skin/Breast: Denies rash Reports system reviewed and no additional complaints, except as documented, Denies dizziness, Denies headache(s) and Denies Sensory deficit (Neuro) Psychiatric: Denies anxiety Mental Status Exam Mental Status Exam Narrative: Appearance: casually groomed, fair hygiene in NAD Behavior: no PMA/PMR. Speech:clear, regular rate/rhythm/volume, spontaneous Thought process:mostly linear Thought content:no overt psychosis Mood: good Affect: calm, normo-intense, non-labile. full range. SI: none expressed HI: none expressed VH/AH: none expressed Delusions: none expressed Insight/judgment:poor x 2. Memory/cog: alert, oriented x 3. some gaps in memory but not formally tested. Diagnostics Vital Signs (24Hr): Vital Signs - 24 hr 05/26/22 20:30 05/27/22 10:30 Temperature 98.3 F 98.1 F Pulse Rate 78 76 Respiratory Rate 16 17 Blood Pressure 111/65 128/62 Pulse Oximetry 99 98 Oxygen Delivery Method Room Air Room Air BMI result Body Mass Index 29.9 Labs Results: 05/21/22 11:34 05/21/22 11:34 Medications Medications Current Medications Acetaminophen (Acetaminophen 325 Mg Tablet) 650 mg PO Q6H PRN PRN Reason: Headache/Pain Mild Scale (1-3) Last Admin: 05/25/22 10:48 Dose: 650 mg Al Hydroxide/Mg Hydroxide (Magnesium Hydrox/Alum Hydrox 30 Ml Oral.Susp) 30 ml PO Q6H PRN PRN Reason: Heartburn/Nausea Clonidine HCl (Clonidine Hcl 0.1 Mg Tablet) 0.1 mg PO Q6H PRN; Protocol PRN Reason: Anxiety Last Admin: 05/26/22 00:04 Dose: 0.1 mg Hydroxyzine HCl (Hydroxyzine Hcl 25 Mg Tablet) 25 mg PO Q6H PRN PRN Reason: Anxiety Last Admin: 05/24/22 10:47 Dose: 25 mg Lamotrigine (Lamotrigine 25 Mg Tablet) 25 mg PO DAILY [facility] Last Admin: 05/27/22 09:00 Dose: 25 mg Magnesium Hydroxide (Milk Of Magnesia 30 Ml Oral.Susp) 30 ml PO DAILY PRN PRN Reason: Constipation Nicotine Polacrilex (Nicotine Polacrilex 2 Mg Gum) 4 mg BUCCAL Q2H PRN PRN Reason: Nicotine Cravings Last Admin: 05/23/22 15:28 Dose: 4 mg Olanzapine (Olanzapine 2.5 Mg Tablet) 2.5 mg PO Q4H PRN PRN Reason: Anxiety Last Admin: 05/26/22 22:59 Dose: 2.5 mg Omeprazole (Omeprazole 40 Mg Capsule.Dr) 40 mg PO DAILY@0630 [facility] Last Admin: 05/27/22 09:00 Dose: 40 mg Trazodone HCl (Trazodone Hcl 50 Mg Tablet) 50 mg PO BEDTIME PRN PRN Reason: Insomnia Allergies Allergies Allergy/AdvReac Type Severity Reaction Status Date / Time clindamycin Allergy Unknown Unknown Verified 01/25/22 21:48 codeine Allergy Unknown Unknown Verified 01/25/22 21:48 Penicillins Allergy Unknown Unknown Verified 01/25/22 21:48 Assessment & Plan Assessment & Plan (1) Bipolar 2 disorder, major depressive episode: Status: Acute Code(s): F31.81 - Bipolar II disorder (2) Cocaine use disorder, moderate, in early remission: Status: Acute Code(s): F14.21 - Cocaine dependence, in remission (3) Multiple sclerosis: Status: Acute Code(s): G35 - Multiple sclerosis Plan Mrs. Bradshaw is a 41 year-old woman with hx of cocaine use in early remission, Bipolar type 2 Disorder, self presented to [facility] ED reporting increase anxious mood, depression, suicidal ideation. Utox positive for cannabinoids. She reports problems with sister with whom she has resided since she was discharged from section 35 back in January of 2022. Pt last admitted to [facility] in 01/2022 for confusion, which quickly resolved, pt was connected with new psychiatric providers, however, pt reports she did not follow up with them. After discussing risks, benefits and alternative treatment options, pt agrees to start lamictal for depression, which she reports has been helpful for her in the past. PLAN 1. admit to [facility], cv 15 minutes checks for safety 2. re-start lamictal 25mg po qhs. pt declines any other medications 3. obtain collateral information 4. aftercare planning. 05/23 continue lamictal. 05/24: DC seroquel PRNs at pt request. added zyprexa PRNs by way of replacement. 05/25: no changes. stable presentation. hoping for discharge to her grandmother's house in [place]. 05/26 continue current medications. continue current medications. I spent minutes with the patient and/or on the patient floor today, greater than?50% of which was spent counseling/coordinating care. Reason for contiued inpatient stay Substantial Risk for: stable for discharge
[2022-05-27] MEDS: OLANZapine 2.5 MG TABLET PO (22:23)
[2022-05-28] MEDS: traZODone HCL 50 MG TABLET PO (01:31)
[2022-05-28] MEDS: Omeprazole 40 MG CAPSULE.DR PO (09:19)
[2022-05-28 09:21] VITALS: BP 127/80; PULSE 104; RESP 17; TEMP 36.8; O2SAT 98
--- NOTE | 2022-05-28 09:59 | P.DS_ITS ---
DS: Providers Provider Date of Service: 05/28/22 Date of admission: 05/22/22 01:19 Primary care physician: Unknown Physician DS: Diagnosis Discharge Diagnosis (1) Bipolar 2 disorder, major depressive episode: Status: Acute (2) Cocaine use disorder, moderate, in early remission: Status: Acute (3) Multiple sclerosis: Status: Acute DS: Medications Discharge Medications Home Medications: Previous Rx's Medication Instructions Recorded lamotrigine 25 mg tablet 25 mg PO DAILY #30 tabs 05/28/22 nicotine (polacrilex) 2 mg gum 4 mg buccal Q2H PRN Nicotine 05/28/22 Cravings #30 ea olanzapine 2.5 mg tablet 2.5 mg PO Q4H PRN Anxiety #60 tabs 05/28/22 omeprazole 40 mg capsule,delayed 40 mg PO DAILY@0630 #30 caps 05/28/22 release trazodone 50 mg tablet 50 mg PO BEDTIME PRN Insomnia #30 05/28/22 tabs Mental Status Exam Mental Status Exam Narrative: Appearance: casually groomed, fair hygiene in NAD Behavior: no PMA/PMR. Speech:clear, regular rate/rhythm/volume, spontaneous Thought process:mostly linear Thought content:no overt psychosis Mood: good Affect: calm, normo-intense, non-labile. full range. SI: none expressed HI: none expressed VH/AH: none expressed Delusions: none expressed Insight/judgment:poor x 2. Memory/cog: alert, oriented x 3. some gaps in memory but not formally tested. Data Data Completed and Pending Completed studies during hospitalization [Text1]: 05/21/22 05/21/22 05/21/22 11:24 11:24 11:34 WBC RBC Hgb Hct MCV MCH MCHC RDW Plt Count MPV Immature Gran % (Auto) Neut % (Auto) Lymph % (Auto) [place] % (Auto) Eos % (Auto) Baso % (Auto) Lymph # (Auto) [place] # (Auto) Eos # (Auto) Baso # (Auto) Abs Immat Gran (auto) Absolute Neuts (auto) Absolute Nucleated RBC Nucleated RBC % (auto) Sodium 139 Potassium 3.9 Chloride 106 Carbon Dioxide 24 Anion Gap 13 BUN 15 Creatinine 0.90 Estim Creat Clear Calc 87.1 Estimated GFR > 60 Random Glucose 99 Calcium 9.9 Total Bilirubin 0.9 AST 12 ALT 12 Alkaline Phosphatase 62 Total Protein 7.5 Albumin 4.7 Urine Test NEGATIVE Salicylates < 5.0 L Urine Opiates Screen Not Detected Urine Fentanyl Screen Not Detected Acetaminophen < 1 Ur Barbiturates Screen Not Detected Ur Phencyclidine Scrn Not Detected Ur Amphetamines Screen Not Detected U Benzodiazepines Scrn Not Detected Urine Cocaine Screen Not Detected U Marijuana (THC) Screen POSITIVE H Ethyl Alcohol COVID-19 ([facility]) COVID-19 Clin Com 05/21/22 05/21/22 05/21/22 11:34 11:34 21:39 WBC 9.2 RBC 4.95 Hgb 15.0 Hct 44.7 MCV 90.3 MCH 30.3 MCHC 33.6 RDW 13.6 Plt Count 284 MPV 9.8 Immature Gran % (Auto) 0.3 Neut % (Auto) 73.3 H Lymph % (Auto) 20.2 [place] % (Auto) 5.6 Eos % (Auto) 0.1 Baso % (Auto) 0.5 Lymph # (Auto) 1.9 [place] # (Auto) 0.5 Eos # (Auto) 0.0 Baso # (Auto) 0.1 Abs Immat Gran (auto) 0.03 Absolute Neuts (auto) 6.7 Absolute Nucleated RBC 0.000 Nucleated RBC % (auto) 0.0 Sodium Potassium Chloride Carbon Dioxide Anion Gap BUN Creatinine Estim Creat Clear Calc Estimated GFR Random Glucose Calcium Total Bilirubin AST ALT Alkaline Phosphatase Total Protein Albumin Urine Test Salicylates Urine Opiates Screen Urine Fentanyl Screen Acetaminophen Ur Barbiturates Screen Ur Phencyclidine Scrn Ur Amphetamines Screen U Benzodiazepines Scrn Urine Cocaine Screen U Marijuana (THC) Screen Ethyl Alcohol < 10 COVID-19 ([facility]) Negative COVID-19 Clin Com See Note DS: Summary Hospital Course Hospital Course: Subjective Notes: Junior Warning and Conditional Voluntary Narrative: Ms. Bradshaw is a 41 year-old woman with hx of cocaine use disorder in remission since 2020 and MS. Parra apparently also has hx of Bipolar Disorder. She was recently admitted to due to confusion and disorganized behaviors-brief admission as pt fairly quickly cleared up. Pt had been sectioned 35, discharged sometime in January of 2022. It appears she has not used cocaine since then. She reports she is living with her sister but this is not helping. Pt reports sister being mean to her. She self presented to [facility] ED reporting increase depressed mood, suicidal ideation in the past few weeks. In the ED, her utox was positive for cannabinoids. On the unit, Ms. Bradshaw reports that once she was discharged from she did not follow up with psychiatric appointments. She reports she stopped taking medications. She reports current stressors are related to relationship with his sister who let her stay with her after being sectioned 35 as pt has? been homeless for years. Pt today reports she can't live with her sister and asks that she is referred to residential substance use treatment program. She reports she is off, which she later describes as feeling depressed and suicidal. On the other hand, pt presents as future oriented reporting that she wants a better life, that she is mostly at home doing nothing. She states she wants to get better so she is a better parent. Pt reports her sister is accusing her of looking for drugs, which she denies using any substances recently. Pt reports in the past lamictal was helpful for depression but reports she has not been on this medication for a long time. She denies visual or auditory hallucinations. Past Psychiatric History: Inpatient: 01/26/2022 due to disorganized/confused behavior ? OP: none (reports she did not follow up with OP services) ? Suicide attempt: several years jump off [employer] as suicide attempt Past medication trials: topamax ( for headache), Invega, risperidone, lamictal (reports helpful for depression) Medical Evaluation Reviewed: Yes Labs on 05/21/2022- CBC wnl, CMP wnl, pregnacy test negative, EKG 01/26/2022 normal sinus rhythm, normal ekg 01/26/2022- wnl lipid panel, A1c 5.4% HOSPITAL COURSE Ms. Forrest was admitted on a CV and placed on 15 minutes checks for safety. Pt initially presented as somewhat irritable, reporting problems with her sister and not wanting to go back to her sister's house. She does not have outpatient providers as she didn't follow up with referrals made on her behalf when discharged from in January of this year. After discussing risks, benefits and alternative treatment option, she asked to be restart on lamictal which she reports was helpful for mood and depression. She declined any other medications, although later low dose of olanzapine was added for mood/sleep. She denied suicidal and homicidal ideation. She did not appear internally preoccupied. She reported she wanted to go to [place] with her grandmother. Towards end of admission, pt reported she had spoken with her s ister and eventually plans to return there after visiting her grandmother. She was visible on the unit. Social with select peers. There were no incidences of disruptive behaviors nor need of restraint. Status at Discharge Cognitive/behavioral status at discharge: Pt presents with bright, non labile affect. No SI/HI. No signs of psychosis nor delusional content reported. She was sleeping and eating well. No signs of aggression towards self or others. Limited insight as to need to follow up with outpatient providers to better manage chronic conditions. Functional status at discharge: independent ambulation Overall status at discharge: patient is progressing back to baseline Time Spent with Patient Time attestation: Total time spent providing and/or coordinating discharge services: Time spent: Greater than 30 minutes Discharge Plan Discharge Patient Disposition: Home Health Service Discharge Diagnosis: Bipolar type 2 cocaine use disorder in early remission Referrals: Therapy & Psychiatry [Other] - 1 Week (If you ever decide to come back to the [place], [place] area, please call the number above to get on the waiting list for therapy and psychiatry through the [facility]) [place],Pending Sale To [facility] [Physician] - 1 Week Discharge Medications: New nicotine (polacrilex) 2 mg Gum 4 mg buccal Q2H PRN (Reason: Nicotine Cravings) Qty: 30 0RF olanzapine 2.5 mg Tablet 2.5 mg PO Q4H PRN (Reason: Anxiety) Qty: 60 0RF lamotrigine 25 mg Tablet 25 mg PO DAILY Qty: 30 0RF trazodone 50 mg Tablet 50 mg PO BEDTIME PRN (Reason: Insomnia) Qty: 30 0RF omeprazole 40 mg Capsule,Delayed Release(Dr/Ec) 40 mg PO DAILY@0630 Qty: 30 0RF Discontinued benztropine 1 mg Tablet 1 mg PO BID 30 Days Qty: 60 0RF Label Comments: has not been taking hydroxyzine HCl 50 mg Tablet 50 mg PO BID PRN (Reason: anxiety) 30 Days Qty: 60 0RF Label Comments: Patient reports no longer taking. ibuprofen 800 mg Tablet 800 mg PO Q8H PRN (Reason: Pain, Mild (Pain Scale 1-3)) Qty: 0 0RF Label Comments: Not taking on a regular basis. topiramate 50 mg tablet 50 mg PO BID 30 Days Qty: 60 0RF Label Comments: Patient reports has not been taking recently. trazodone 50 mg Tablet 50 mg PO BEDTIME PRN (Reason: insomnia) 30 Days Qty: 30 0RF Label Comments: Patient reports has not been taking recently. melatonin 3 mg Tablet 3 mg PO BEDTIME PRN (Reason: sleep) 30 Days Qty: 30 0RF Label Comments: Has not been taking recently omeprazole 40 mg Capsule,Delayed Release(Dr/Ec) 40 mg PO DAILY 30 Days Qty: 30 0RF Label Comments: Patient reports has not been taking recently. oxybutynin chloride 5 mg Tablet Extended Release 24 Hr 5 mg PO DAILY 30 Days Qty: 30 0RF Label Comments: Patient reports has not been taking recently. Discharge Orders: Discharge Order (Routine); Ordered 05/28/22 Ordered By: Prachi Goel Diet: Regular diet Activity on Discharge: As tolerated Stand Alone Forms: Patient Portal Discharge page, Community Support Care Plan Goals: 1. Maintain mood 2. No SI/HI 3. No aggression towards self or others. Health Concerns: Follow up with PCP Plan of Treatment: 1. Take medications as prescribed. 2. Go to nearest ED or call 911 Assessment: Pt with bright non labile affect. No SI/HI. No signs of psychosis or delusional content. Limited insight as to need to follow up with OP providers to better manage chronic conditions including MS and Bipolar Disorder. No signs of aggression towards self or others. Discharge Date/Time: 05/28/22 12:02
[2022-05-28] MEDS: Acetaminophen 325 MG TABLET 650 MG PO (11:20)
== END 2022-05-28 12:02 | disposition home health service (06) | DRG 753 ==
LOC: HO.ED 20:22 → HO.PADLT16 05-22 01:26
PROVIDERS: Admitting Provider Psychiatry & Neurology Psychiatry; Emergency Provider Emergency Medicine; Responsible Provider Social Worker; Visit Provider Social Worker
DX: F31.81 Bipolar II disorder (principal); R45.851 Suicidal ideations; F14.10 Cocaine abuse, uncomplicated; K21.9 Gastro-esophageal reflux disease without esophagitis; G35 Multiple sclerosis; Z91.51 Personal history of suicidal behavior; Z20.822 Contact with and (suspected) exposure to COVID-19; Z88.0 Allergy status to penicillin; Z88.1 Allergy status to other antibiotic agents; Z88.5 Allergy status to narcotic agent; Z79.899 Other long term (current) drug therapy
CPT/HCPCS: 36415; 80053; 80143; 80179; 80307; 81025; 82077; 85025; 87635; 99285

== ENCOUNTER 2022-06-01 14:59 | Emergency (ER) | payer OTHER, SELFPAY ==
[2022-06-01 15:12] VITALS: BP 102/70; PULSE 95; O2SAT 98; BMI 29.0
[2022-06-01 15:16] VITALS: BP 115/61; PULSE 95; RESP 18; TEMP 36.7; O2SAT 95
--- NOTE | 2022-06-01 16:00 | ED.PSYCH ---
HPI - Psych General Chief Complaint: Psychiatric Symptoms Stated Complaint: SI Time Seen by Provider: 06/01/22 15:49 Source: patient Mode of arrival: ambulatory Limitations: no limitations History of Present Illness HPI Narrative: 41-year-old female presents to the ED for continued auditory hallucinations as making her suicidal. Patient denies having a plan but charts states she has plan to jump the window. Patient states she does notl have her psych meds. patient does not have any physical complaints. Related Data Previous Rx's Medication Instructions Recorded lamotrigine 25 mg tablet 25 mg PO DAILY #30 tabs 05/28/22 nicotine (polacrilex) 2 mg gum 4 mg buccal Q2H PRN Nicotine 05/28/22 Cravings #30 ea olanzapine 2.5 mg tablet 2.5 mg PO Q4H PRN Anxiety #60 tabs 05/28/22 omeprazole 40 mg capsule,delayed 40 mg PO DAILY@0630 #30 caps 05/28/22 release trazodone 50 mg tablet 50 mg PO BEDTIME PRN Insomnia #30 05/28/22 tabs Allergies Allergy/AdvReac Type Severity Reaction Status Date / Time clindamycin Allergy Unknown Unknown Verified 01/25/22 21:48 codeine Allergy Unknown Unknown Verified 01/25/22 21:48 Penicillins Allergy Unknown Unknown Verified 01/25/22 21:48 Review of Systems Review of Systems: auditory hallucination [facility] Past Medical History Medical History Adjustment disorder with mixed disturbance of emotions and conduct GERD (gastroesophageal reflux disease) Social History Social History Household Members: Family Household Members Other:: Sister, Sister's and two children Housing: House Do you presently have visiting nurse or other home services: No Alcohol intake: never Patient Tobacco Use Status: Never used Tobacco Second Hand Smoke Exposure: No Use of substances other than those prescribed or required for medical reasons: No Substance Use Type: Marijuana Advance Directives: Yes Advance Directives on File: Yes Advance Directives Date on File: 01/31/22 service: No Sexual orientation: Don't Know Physical Exam Vital Signs: Vital Signs: Last Vital Signs Temp 98.0 F 06/01/22 15:16 Pulse 85 06/02/22 08:34 Resp 14 06/02/22 08:34 BP 102/65 06/02/22 08:34 Pulse Ox 99 06/02/22 08:34 O2 Del Method 06/02/22 08:34 BMI result Body Mass Index 29.0 Const: General: cooperative, healthy appearing, comfortable, no acute distress, well developed, alert, awake and Physically active Orientation/consciousness: patient oriented x3 HEENT: Head: Yes normal to inspection, Yes No palpable skull fracture present, Yes normocephalic, Yes atraumatic and No abrasion Eyes: General: appearance normal, both eyes and all related structures Neck: Neck: Yes normal visual inspection, Yes full ROM, Yes no lymphadenopathy, Yes no meningeal signs, Yes trachea midline, Yes supple, No anterior neck swelling and No tender Chest: Chest palpation & inspection: normal inspection of the chest and normal palpation of entire chest wall Resp: Effort & Inspection: normal respiratory effort and able to speak in complete sentences Auscultation: clear to auscultation bilaterally Cardio: Jugular venous distension: no JVD Heart sounds: S1 normal heart sound present and S2 normal heart sound present GI: Inspection: Yes normal to inspection and No abdominal wall ecchymosis Palpation (GI): Soft to palpation, not firm, nontender, no guarding and not rigid : General: No CVA tenderness and Yes no CVA tenderness Back/Spine/Pelvis: Back: no CVA tenderness, No CVA tenderness and No back tenderness Skin: General skin exam: no rashes or lesions noted and elasticity normal Neuro: General: patient oriented x3, gait normal, no meningeal signs and CN's II-XI intact bilaterally Cranial nerves: Yes CN's II-XII intact bilaterally Extrem: General: Yes normal to inspection and Yes full ROM Psych: Appearance: grossly normal, well kempt and not disheveled Course Course Course Narrative: Patient will have labs and crisis evaluation Reevaluation(s) Reevaluation #1: Patient labs are at baseline. Waiting for N evaluation MDM - Psych MDM Narrative Medical decision making narrative: Depressoni Lab Data Result diagrams: 06/01/22 16:34 06/01/22 16:34 Labs: Lab Results 06/01/22 06/01/22 06/01/22 Range/Units 16:34 16:34 18:19 WBC 7.5 (4.8-10.8) X10*3/uL RBC 4.47 (4.20-5.50) X10*6/uL Hgb 13.8 (12.0-16.0) g/dl Hct 40.7 (37.0-47.0) % MCV 91.1 (80.0-98.0) fL MCH 30.9 (27.0-33.0) pg MCHC 33.9 (31.0-35.0) g/dl RDW 13.6 (11.0-16.0) % Plt Count 272 (160-400) X10*3/uL MPV 10.1 (9.4-12.3) fL Immature Gran % (Auto) 0.3 (0.0-0.4) % Neut % (Auto) 58.0 (45-73) % Lymph % (Auto) 32.4 (20-40) % [place] % (Auto) 7.6 (2-11) % Eos % (Auto) 1.2 (0-4) % Baso % (Auto) 0.5 (0-2) % Lymph # (Auto) 2.4 (1.2-4.9) X10*3/uL [place] # (Auto) 0.6 (0.1-1.2) X10*3/uL Eos # (Auto) 0.1 (0.0-0.4) X10*3/uL Baso # (Auto) 0.0 (0.0-0.2) X10*3/uL Abs Immat Gran (auto) 0.02 (0.00-0.03) X10*3/uL Absolute Neuts (auto) 4.3 (2.0-8.3) x10*3/uL Absolute Nucleated RBC 0.000 (0.0-0.012) X10*3/uL Nucleated RBC % (auto) 0.0 (0.0-0.2) /100WBC Sodium 139 (135-145) mmol/L Potassium 3.3 (3.3-5.1) mmol/L Chloride 107 (96-108) mmol/L Carbon Dioxide 22 (22-29) mmol/L Anion Gap 13 (12-20) BUN 17 H (9-16) mg/dL Creatinine 0.87 (0.5-1.4) mg/dL Estim Creat Clear Calc 92.6 Estimated GFR > 60 Random Glucose 124 H (60-115) mg/dL Calcium 9.5 (8.4-10.2) mg/dL Total Bilirubin 0.7 (0.0-1.0) mg/dL AST 13 (5-31) U/L ALT 16 (0-31) U/L Alkaline Phosphatase 53 (39-117) U/L Total Protein 7.0 (6.5-8.0) g/dL Albumin 4.3 (3.5-5.0) g/dL Urine Color DK YELLOW Urine Appearance CLOUDY Urine pH 5.5 (5.0-8.0) Ur Specific [place] >= 1.030 H (1.005-1.025) Urine Protein 2+ H (NEG-TRACE) MG/DL Urine Glucose (UA) NEG (NEG) MG/DL Urine Ketones 15 (NEG) MG/DL Urine Blood 3+ H (NEG) Urine Nitrite NEG (NEG) Ur Leukocyte Esterase NEG (NEG) Urine RBC TNTC H (0) /HPF Urine WBC 0-2 (0-4) /HPF Ur Squamous Epith Cells 2+ /LPF Urine Bacteria 1+ /LPF Urine Mucus TRACE /LPF Urine Test (NEGATIVE) Urine Opiates Screen (Not Detect) Urine Fentanyl Screen (Not Detect) Ur Barbiturates Screen (Not Detect) Ur Phencyclidine Scrn (Not Detect) Ur Amphetamines Screen (Not Detect) U Benzodiazepines Scrn (Not Detect) Urine Cocaine Screen (Not Detect) U Marijuana (THC) Screen (Not Detect) Ethyl Alcohol < 10 mg/dL 06/01/22 06/01/22 Range/Units 18:19 18:19 WBC (4.8-10.8) X10*3/uL RBC (4.20-5.50) X10*6/uL Hgb (12.0-16.0) g/dl Hct (37.0-47.0) % MCV (80.0-98.0) fL MCH (27.0-33.0) pg MCHC (31.0-35.0) g/dl RDW (11.0-16.0) % Plt Count (160-400) X10*3/uL MPV (9.4-12.3) fL Immature Gran % (Auto) (0.0-0.4) % Neut % (Auto) (45-73) % Lymph % (Auto) (20-40) % [place] % (Auto) (2-11) % Eos % (Auto) (0-4) % Baso % (Auto) (0-2) % Lymph # (Auto) (1.2-4.9) X10*3/uL [place] # (Auto) (0.1-1.2) X10*3/uL Eos # (Auto) (0.0-0.4) X10*3/uL Baso # (Auto) (0.0-0.2) X10*3/uL Abs Immat Gran (auto) (0.00-0.03) X10*3/uL Absolute Neuts (auto) (2.0-8.3) x10*3/uL Absolute Nucleated RBC (0.0-0.012) X10*3/uL Nucleated RBC % (auto) (0.0-0.2) /100WBC Sodium (135-145) mmol/L Potassium (3.3-5.1) mmol/L Chloride (96-108) mmol/L Carbon Dioxide (22-29) mmol/L Anion Gap (12-20) BUN (9-16) mg/dL Creatinine (0.5-1.4) mg/dL Estim Creat Clear Calc Estimated GFR Random Glucose (60-115) mg/dL Calcium (8.4-10.2) mg/dL Total Bilirubin (0.0-1.0) mg/dL AST (5-31) U/L ALT (0-31) U/L Alkaline Phosphatase (39-117) U/L Total Protein (6.5-8.0) g/dL Albumin (3.5-5.0) g/dL Urine Color Urine Appearance Urine pH (5.0-8.0) Ur Specific [place] (1.005-1.025) Urine Protein (NEG-TRACE) MG/DL Urine Glucose (UA) (NEG) MG/DL Urine Ketones (NEG) MG/DL Urine Blood (NEG) Urine Nitrite (NEG) Ur Leukocyte Esterase (NEG) Urine RBC (0) /HPF Urine WBC (0-4) /HPF Ur Squamous Epith Cells /LPF Urine Bacteria /LPF Urine Mucus /LPF Urine Test NEGATIVE (NEGATIVE) Urine Opiates Screen Not Detected (Not Detect) Urine Fentanyl Screen Not Detected (Not Detect) Ur Barbiturates Screen Not Detected (Not Detect) Ur Phencyclidine Scrn Not Detected (Not Detect) Ur Amphetamines Screen Not Detected (Not Detect) U Benzodiazepines Scrn Not Detected (Not Detect) Urine Cocaine Screen Not Detected (Not Detect) U Marijuana (THC) Screen POSITIVE H (Not Detect) Ethyl Alcohol mg/dL Discharge Plan Discharge Clinical Impression: Depression Patient Disposition: Still a Patient Instructions: Depression (ED) Prescriptions: No Action nicotine (polacrilex) 2 mg Gum 4 mg buccal Q2H PRN (Reason: Nicotine Cravings) Qty: 30 0RF olanzapine 2.5 mg Tablet 2.5 mg PO Q4H PRN (Reason: Anxiety) Qty: 60 0RF lamotrigine 25 mg Tablet 25 mg PO DAILY Qty: 30 0RF trazodone 50 mg Tablet 50 mg PO BEDTIME PRN (Reason: Insomnia) Qty: 30 0RF omeprazole 40 mg Capsule,Delayed Release(Dr/Ec) 40 mg PO DAILY@0630 Qty: 30 0RF
--- NOTE | 2022-06-01 16:35 | PC.NURSE ---
labs drawn per order, pt aware we need urine and is requesting medication for anxiety- provider notified
[2022-06-01 16:39] LABS: MANUAL DIFF FLAG NO
[2022-06-01 16:42] LABS: Basophils Percent Auto 0.5 % (0-2); Eosinophils Absolute Auto 0.1 X10*3/uL (0.0-0.4); Eosinophils Percent Auto 1.2 % (0-4); Hematocrit 40.7 % (37.0-47.0); Hemoglobin 13.8 g/dl (12.0-16.0); Imm Gran Abs Auto 0.02 X10*3/uL (0.00-0.03); Imm Gran Pct Auto 0.3 % (0.0-0.4); Lymphocytes Absolute Auto 2.4 X10*3/uL (1.2-4.9); Lymphocytes Percent Auto 32.4 % (20-40); Mean Corpuscular HGB Conc 33.9 g/dl (31.0-35.0); Mean Corpuscular Hemoglobin 30.9 pg (27.0-33.0); Mean Corpuscular Volume 91.1 fL (80.0-98.0); Mean Platelet Volume 10.1 fL (9.4-12.3); Monocytes Absolute Auto 0.6 X10*3/uL (0.1-1.2); Monocytes Percent Auto 7.6 % (2-11); Neutrophils Absolute Auto 4.3 x10*3/uL (2.0-8.3); Platelet Count 272 X10*3/uL (160-400); Red Blood Count 4.47 X10*6/uL (4.20-5.50); Red Cell Distribution Width 13.6 % (11.0-16.0); White Blood Count 7.5 X10*3/uL (4.8-10.8)
[2022-06-01 17:00] LABS: Alanine Aminotransferase 16 U/L (0-31); Albumin Level 4.3 g/dL (3.5-5.0); Alkaline Phosphatase 53 U/L (39-117); Anion Gap 13 (12-20); Aspartate Amino Transferase 13 U/L (5-31); Bilirubin Total 0.7 mg/dL (0.0-1.0); Blood Urea Nitrogen 17 mg/dL (9-16); Calcium 9.5 mg/dL (8.4-10.2); Carbon Dioxide 22 mmol/L (22-29); Chloride 107 mmol/L (96-108); Creatinine Clr Calc Pharmacy 92.6; Estimated Glomerular Filt Rate > 60; Ethanol < 10 mg/dL; Glucose Random 124 mg/dL (60-115); Potassium 3.3 mmol/L (3.3-5.1); Sodium 139 mmol/L (135-145)
[2022-06-01] MEDS: LORazepam 1 MG TABLET 2 MG PO (18:16)
--- NOTE | 2022-06-01 18:16 | PC.NURSE ---
pt medicated for anxiety per order
[2022-06-01 18:31] LABS: UPreg QC Valid YES; Urine Pregnancy NEGATIVE (NEGATIVE)
[2022-06-01 18:32] LABS: Appearance Urine CLOUDY; Color Urine DK YELLOW; Glucose Urine UA NEG (NEG); Leukocyte Esterase Urine NEG (NEG); Nitrite Urine NEG (NEG); PH 5.5 (5.0-8.0); Specific Gravity - Urine >= 1.030 (1.005-1.025); UACC Culture Trigger NO; Urine Blood 3+ (NEG); Urine Ketones 15 MG/DL (NEG); Urine Protein 2+ MG/DL (NEG-TRACE)
[2022-06-01 18:40] LABS: Bacteria Urine 1+ /LPF; Mucus Urine TRACE /LPF; RBC Urine TNTC /HPF (0); Squamous Epithelial Cell Urine 2+ /LPF; WBC Urine 0-2 /HPF (0-4)
[2022-06-01 18:42] LABS: Amphetamine Screen Urine Not Detected (Not Detect); Barbiturates, Urine Not Detected (Not Detect); Benzodiazepines Screen Urine Not Detected (Not Detect); Cannabinoid Screen Urine POSITIVE (Not Detect); Cocaine Screen Urine Not Detected (Not Detect); Fentanyl, urine Not Detected (Not Detect); Opiate Screen Urine Not Detected (Not Detect); Phencyclidine Screen Urine Not Detected (Not Detect)
--- NOTE | 2022-06-01 22:10 | PC.NURSE ---
pt resting in HW recliner. pt asleep at this time, no complaints.
--- NOTE | 2022-06-01 22:37 | PC.NURSE ---
sister called to give update. last time pt was at hospital, pt was sent to 3rd floor, pt states that her sister (HCP) kicked her out, had hospital paid for taxi to [place] with no clothes or materials. sister states pt is not SI. pt was struggling to get back from [facility]. pt was told today that she cant smoke weed her sisters house so pt stated that she will go to the hospital to get medications to sleep then be provided with a taxi back to [place]. sister states she is going to court tomorrow to try to get a section 35
--- NOTE | 2022-06-02 02:00 | PC.NURSE ---
[facility] clinician consulting with patient
--- NOTE | 2022-06-02 03:38 | PC.NURSE ---
pt continue to sleep, does not appear to be distressed, resting comfortably
--- NOTE | 2022-06-02 05:35 | PC.NURSE ---
pt seen by N pt states that she is not suicidal. 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 pt is cleared from [facility] standpoint, aware who is ok with pt staying night for sister (hcp) to garbage pick up worker patient in the AM to attempt to section 35 here
--- NOTE | 2022-06-02 08:09 | PC.NURSE ---
calm and cooperative, ate breakfast without issue. per previous shift rn, plan for pt to be section 35 by family today and pt is unaware.
[2022-06-02 08:34] VITALS: BP 102/65; PULSE 85; RESP 14; O2SAT 99
--- NOTE | 2022-06-02 09:33 | PHA.MEDREC ---
Pharmacy Consult ? Medication Reconciliation Pharmacy has reviewed the medication reconciliation completed by Sony. Patient also has prescirption for hydroxyzine PRN that I added to home list. Claudia Willett, RebekahD
[2022-06-02] MEDS: LORazepam 1 MG TABLET 2 MG PO (09:39)
== END 2022-06-02 13:17 | disposition home or self-care (01) ==
PROVIDERS: Physician Assistant; Emergency Provider Emergency Medicine
DX: F33.1 Major depressive disorder, recurrent, moderate (principal); R45.851 Suicidal ideations; R44.0 Auditory hallucinations; Z79.899 Other long term (current) drug therapy
CPT/HCPCS: 36415; 80053; 80307; 81001; 81025; 82077; 85025; 99284